=== PATIENT | male | born 1950 | race Caucasian/White ===

== ENCOUNTER 2024-03-08 02:02 | Emergency (ER) | payer MEDICARE, OTHER ==
[~2024-03-08] VITALS: Ht 182.9 cm; Wt 86.4 kg
[2024-03-08 02:10] VITALS: TEMP 97.6
[2024-03-08] MEDS: NS 1,000 ML IV ONE ×2 (02:25→04:17)
[2024-03-08 02:42] LABS: BASO % 0.3 % (0.0-1.0); EOS % 0.2 % (0.0-3.0); HEMATOCRIT 27.4 % (42.0-52.0); LYMPH # 0.8 10^3/uL (1.5-5.0); LYMPH % 9.2 % (24.0-44.0); MEAN CORPUSCULAR HEMOGLOBIN 30.9 pg (27.0-33.0); MEAN CORPUSCULAR HGB CONC 32.8 g/dl (32.0-36.5); MEAN CORPUSCULAR VOLUME 94.2 fl (80.0-96.0); MONO # 0.6 10^3/uL (0.0-0.8); MONO % 6.1 % (2.0-8.0); NEUTROPHILS # 7.5 10^3/uL (1.5-8.5); NEUTROPHILS % 83.4 % (36.0-66.0); PLATELET COUNT, AUTOMATED 178 10^3/uL (150-450); RED BLOOD COUNT 2.91 10^6/uL (4.30-6.10)
[2024-03-08 03:07] LABS: ETHYL ALCOHOL (ETHANOL) < 0.003 % (0.000-0.010)
[2024-03-08 03:09] LABS: BLOOD UREA NITROGEN 70 MG/DL (9-23); CARBON DIOXIDE LEVEL 25 MMOL/L (20-31); CHLORIDE LEVEL 105 MMOL/L (98-107); CK-MB VALUE MASS 2.9 NG/ML (<3.6); CPK CREATINE PHOSPHOKINASE 77 U/L (46-171); CREATININE FOR GFR 1.59 MG/DL (0.70-1.30); GLOMERULAR FILTRATION RATE 45.7 (>42); GLUCOSE, FASTING 251 MG/DL (74-106); MAGNESIUM LEVEL 1.7 MG/DL (1.8-2.4); MB/CK RELATIVE INDEX 3.76 (< OR =4); SODIUM LEVEL 139 MMOL/L (136-145)
[2024-03-08 03:11] LABS: THYROID STIMULATING HORMONE 1.789 uIU/ML (0.55-4.78)
[2024-03-08 03:12] LABS: FREE T4 1.11 NG/DL (0.89-1.76)
[2024-03-08] MEDS ORDERED: PIOG1TAB37 PO (03:29)
[2024-03-08] MEDS ORDERED: EZET10TA21 PO (03:29)
[2024-03-08] MEDS ORDERED: LAMO100T80 PO (03:29)
[2024-03-08] MEDS ORDERED: FENO200C24 PO (03:29)
[2024-03-08] MEDS ORDERED: ATIV2TAB PO (03:29)
[2024-03-08] MEDS ORDERED: LISI40TA4 PO (03:29)
[2024-03-08] MEDS ORDERED: TRAD5TAB PO (03:29)
[2024-03-08] MEDS ORDERED: NORV5TAB PO (03:29)
[2024-03-08] MEDS ORDERED: FARX1TAB3 PO (03:29)
[2024-03-08] MEDS ORDERED: METF-838 PO (03:29)
[2024-03-08] MEDS ORDERED: ATOR1TAB19 PO (03:29)
[2024-03-08] MEDS ORDERED: METO50TA7 PO (03:29)
[2024-03-08 03:37] LABS: LIPASE 50 U/L (12-53)
[2024-03-08 03:43] LABS: ALBUMIN 2.5 G/DL (3.2-5.2); ALKALINE PHOSPHATASE 51 U/L (46-116); ALT/SGPT 19 U/L (7.0-40); AST/SGOT 12 U/L (<34); BILIRUBIN,DIRECT 0.1 MG/DL (<0.4); BILIRUBIN,TOTAL 0.3 MG/DL (0.3-1.2); TOTAL PROTEIN 4.5 G/DL (5.7-8.2)
[2024-03-08] MEDS: MAG SULF 1GM/100ML (MAG RUN) 1 GM in IV 1 EA IV ONE (04:17)
[2024-03-08 05:46] VITALS: BP 115/62; O2SAT 94
== END 2024-03-08 06:25 | disposition home or self-care (01) ==
LOC: EDBD 02:02 → M ED 02:02
DX: E86.1 Hypovolemia (principal); E86.0 Dehydration; Z79.899 Other long term (current) drug therapy; Z79.84 Long term (current) use of oral hypoglycemic drugs
CPT/HCPCS: 70450; 71045; 72125; 80048; 80076; 82077; 82550; 82553; 83605; 83690; 83735; 84439; 84443; 84484; 85025; 93005; 93041; 94760; 96361; 96365; 99285; J3475

== ENCOUNTER 2024-09-05 06:58 | Inpatient (IN) | payer MEDICARE, OTHER ==
[~2024-09-05] VITALS: Ht 177.8 cm; Wt 73.5 kg
[~2024-09-05 06:58] MED LIST: ATIV2TAB PO; ATOR1TAB19 PO; EZET10TA21 PO; FARX1TAB3 PO; FENO200C24 PO; LAMO100T80 PO; LISI40TA4 PO; METF-838 PO; METO50TA7 PO; NORV5TAB PO; PIOG1TAB37 PO; TRAD5TAB PO
[2024-09-05 09:30] LABS: BASO # 0.1 10^3/uL (0.0-0.2); BASO % 1.2 % (0.0-1.0); EOS % 0.6 % (0.0-3.0); HEMATOCRIT 32.3 % (42.0-52.0); HEMOGLOBIN 10.9 g/dl (13.5-17.5); LYMPH # 0.6 10^3/uL (1.5-5.0); LYMPH % 11.2 % (24.0-44.0); MEAN CORPUSCULAR HEMOGLOBIN 29.9 pg (27.0-33.0); MEAN CORPUSCULAR HGB CONC 33.7 g/dl (32.0-36.5); MEAN CORPUSCULAR VOLUME 88.5 fl (80.0-96.0); MONO # 0.7 10^3/uL (0.0-0.8); MONO % 13.3 % (2.0-8.0); NEUTROPHILS # 3.6 10^3/uL (1.5-8.5); NEUTROPHILS % 73.3 % (36.0-66.0); PLATELET COUNT, AUTOMATED 263 10^3/uL (150-450); RED BLOOD COUNT 3.65 10^6/uL (4.30-6.10); WHITE BLOOD COUNT 4.9 10^3/uL (4.0-10.0)
[2024-09-05] MEDS: NS 500 ML IV ONE (11:02)
[2024-09-05 11:26] LABS: CK-MB VALUE MASS < 1.0 NG/ML (<3.6)
[2024-09-05 11:57] LABS: ALBUMIN 1.8 G/DL (3.2-5.2); ALKALINE PHOSPHATASE 52 U/L (46-116); ALT/SGPT 19 U/L (7.0-40); AST/SGOT 25 U/L (<34); BILIRUBIN,DIRECT 0.1 MG/DL (<0.4); BILIRUBIN,TOTAL 0.3 MG/DL (0.3-1.2); BLOOD UREA NITROGEN 17 MG/DL (9-23); CALCIUM LEVEL 5.5 MG/DL (8.3-10.6); CARBON DIOXIDE LEVEL 14 MMOL/L (20-31); CHLORIDE LEVEL 124 MMOL/L (98-107); CPK CREATINE PHOSPHOKINASE 44 U/L (46-171); GLOMERULAR FILTRATION RATE > 60.0 (>42); GLUCOSE, FASTING 121 MG/DL (74-106); MB/CK RELATIVE INDEX 2.27 (< OR =4); SODIUM LEVEL 148 MMOL/L (136-145)
[2024-09-05 12:42] LABS: CK-MB VALUE MASS < 1.0 NG/ML (<3.6)
[2024-09-05 12:51] LABS: CPK CREATINE PHOSPHOKINASE 141 U/L (46-171)
[2024-09-05] MEDS ORDERED: NS 1,000 ML IV SCH (13:15)
[2024-09-05] MEDS ORDERED: LORA2TAB14 PO (13:36)
[2024-09-05] MEDS ORDERED: FURO20TA2 PO (13:36)
[2024-09-05] MEDS ORDERED: FARX1TAB5 PO (13:36)
[2024-09-05] MEDS ORDERED: CLOP75TA2 PO (13:36)
[2024-09-05] MEDS ORDERED: ONDA-284 PO (13:36)
[2024-09-05] MEDS ORDERED: RISP-106 PO (13:36)
[2024-09-05] MEDS ORDERED: PROC10TA5 PO (13:36)
[2024-09-05] MEDS ORDERED: HOME MED LIST COMPLETE! XX SCH (13:40)
[2024-09-05 13:50] LABS: VENOUS BASE EXCESS 0.3 (-2.0-2.0); VENOUS O2 SATURATION 84.4 % (60.0-80.0); VENOUS PARTIAL PRESSURE CO2 40.7 mmHg (38.0-50.0); VENOUS PARTIAL PRESSURE O2 52.5 mmHg (30.0-50.0); VENOUS PH 7.406 UNITS (7.330-7.430); VENOUS STANDARD HCO3 24.5 MMOL/L; VENOUS TOTAL CO2 26.2 MMOL/L (24.0-28.0)
[2024-09-05] MEDS: CALCIUM GLUCONATE 1,000 MG in D5W MINI-BAG PLUS 100 ML IV ONE (13:52)
[2024-09-05] MEDS ORDERED: DEXTROSE 50% 50ML SYRINGE IV PRN (14:20)
[2024-09-05] MEDS ORDERED: GLUCOSE 4 GM CHEW PO PRN (14:20)
[2024-09-05] MEDS ORDERED: ACETAMINOPHEN 325 MG TAB PO PRN (14:20)
[2024-09-05] MEDS ORDERED: GLUCAGON INJ 1MG VIAL SC PRN (14:20)
[2024-09-05] MEDS: POTASSIUM CHLORIDE 10MEQ SR TABLET PO ONE ×2 (14:59→18:13)
[2024-09-05] MEDS: LR 1,000 ML IV ONE (15:01)
[2024-09-05 15:37] LABS: MAGNESIUM LEVEL 1.1 MG/DL (1.8-2.4); PHOSPHORUS LEVEL 2.5 MG/DL (2.4-5.1)
[2024-09-05] MEDS ORDERED: ONDANSETRON 4MG ORAL DISINTEGRATING TAB PO PRN (16:10)
[2024-09-05] MEDS ORDERED: risperiDONE 2 MG TAB PO PRN (16:10)
[2024-09-05] MEDS ORDERED: PROCHLORPERAZINE 5MG TAB PO PRN (16:10)
[2024-09-05] MEDS ORDERED: SODIUM BICARBONATE 75 MEQ in NS 0.45% 1,000 ML IV SCH (17:00)
[2024-09-05] MEDS: INSULIN LISPRO (NovoLOG) PER UNIT SC SCH ×2 (17:30→20:22)
[2024-09-05] MEDS: MAG SULF 1GM/100ML (MAG RUN) 1 GM in IV 1 EA IV SCH (18:13)
[2024-09-05 18:27] VITALS: BP 170/100; TEMP 99.5; O2SAT 94
[2024-09-05] MEDS: METOPROLOL TART 50 MG TAB PO SCH (18:33)
[2024-09-05] MEDS: amLODIPine 5 MG TAB PO SCH (18:33)
[2024-09-05] MEDS: lisinopriL 40MG TAB PO SCH (18:33)
[2024-09-05 18:54] LABS: THYROID STIMULATING HORMONE 0.014 uIU/ML (0.55-4.78)
[2024-09-05 19:38] VITALS: BP 160/96
[2024-09-05 20:00] VITALS: BP 160/88; TEMP 99.4; O2SAT 92
[2024-09-05] MEDS: LORazepam 2 MG TAB PO SCH (20:19)
[2024-09-05] MEDS: ENOXAPARIN 40MG/0.4ML SYRINGE (J1650 PER 10MG) SC SCH (20:22)
[2024-09-06] MEDS: SODIUM BICARBONATE 150 MEQ in D5W 1,000 ML IV SCH (00:09)
[2024-09-06 00:45] LABS: BLOOD UREA NITROGEN 15 MG/DL (9-23); CALCIUM LEVEL 10.3 MG/DL (8.3-10.6); CARBON DIOXIDE LEVEL 27 MMOL/L (20-31); CHLORIDE LEVEL 108 MMOL/L (98-107); CREATININE FOR GFR 0.81 MG/DL (0.70-1.30); GLOMERULAR FILTRATION RATE > 60.0 (>42); GLUCOSE, FASTING 153 MG/DL (74-106); MAGNESIUM LEVEL 2.5 MG/DL (1.8-2.4); POTASSIUM SERUM 4.2 MMOL/L (3.5-5.1); SODIUM LEVEL 140 MMOL/L (136-145)
[2024-09-06 04:00] VITALS: BP 152/99; TEMP 98.2; O2SAT 92
[2024-09-06 05:29] LABS: BASO # 0.1 10^3/uL (0.0-0.2); BASO % 1.2 % (0.0-1.0); EOS % 0.8 % (0.0-3.0); HEMATOCRIT 34.5 % (42.0-52.0); HEMOGLOBIN 11.6 g/dl (13.5-17.5); LYMPH # 0.5 10^3/uL (1.5-5.0); LYMPH % 10.7 % (24.0-44.0); MEAN CORPUSCULAR HEMOGLOBIN 29.6 pg (27.0-33.0); MEAN CORPUSCULAR HGB CONC 33.6 g/dl (32.0-36.5); MONO # 0.8 10^3/uL (0.0-0.8); MONO % 16.2 % (2.0-8.0); NEUTROPHILS # 3.5 10^3/uL (1.5-8.5); NEUTROPHILS % 70.9 % (36.0-66.0); PLATELET COUNT, AUTOMATED 282 10^3/uL (150-450); RED BLOOD COUNT 3.92 10^6/uL (4.30-6.10)
[2024-09-06 05:53] LABS: BLOOD UREA NITROGEN 14 MG/DL (9-23); CALCIUM LEVEL 10.2 MG/DL (8.3-10.6); CARBON DIOXIDE LEVEL 28 MMOL/L (20-31); CHLORIDE LEVEL 106 MMOL/L (98-107); GLOMERULAR FILTRATION RATE > 60.0 (>42); GLUCOSE, FASTING 167 MG/DL (74-106); POTASSIUM SERUM 3.7 MMOL/L (3.5-5.1); SODIUM LEVEL 140 MMOL/L (136-145)
[2024-09-06 07:04] LABS: THYROXINE (T4) 25.4 UG/DL (4.5-10.9)
[2024-09-06 07:05] LABS: T UPTAKE 63.4 % (22.5-37.0); THYROID PEROXIDASE ANTIBODY < 28.0 U/ML (<60.0); THYROID STIMULATING HORMONE 0.009 uIU/ML (0.55-4.78)
[2024-09-06 08:24] LABS: MAGNESIUM LEVEL 2.3 MG/DL (1.8-2.4)
[2024-09-06 09:23] VITALS: BP 150/95
[2024-09-06] MEDS: EZETIMIBE 10MG TABLET (ZETIA) PO SCH (09:26)
[2024-09-06] MEDS: ATORVASTATIN 10 MG TAB PO SCH (09:26)
[2024-09-06] MEDS: lamoTRIgine 100MG TAB PO SCH (09:26)
[2024-09-06] MEDS: CLOPIDOGREL 75 MG TAB PO SCH (09:27)
[2024-09-06 12:00] VITALS: BP 138/89; TEMP 98.1; O2SAT 95
[2024-09-06 16:00] VITALS: BP_SYST 122; BP_SYST 129; BP_DIAS 79; BP_DIAS 81
[2024-09-06 20:55] VITALS: BP 119/79; TEMP 98.6; O2SAT 94
[2024-09-07 03:32] VITALS: TEMP 99; O2SAT 92
[2024-09-07 04:00] VITALS: BP 150/85
[2024-09-07 06:23] LABS: BASO # 0.1 10^3/uL (0.0-0.2); EOS # 0.1 10^3/uL (0.0-0.5); EOS % 1.4 % (0.0-3.0); HEMATOCRIT 34.4 % (42.0-52.0); HEMOGLOBIN 11.6 g/dl (13.5-17.5); LYMPH # 0.6 10^3/uL (1.5-5.0); LYMPH % 12.7 % (24.0-44.0); MEAN CORPUSCULAR HEMOGLOBIN 28.9 pg (27.0-33.0); MEAN CORPUSCULAR HGB CONC 33.7 g/dl (32.0-36.5); MEAN CORPUSCULAR VOLUME 85.8 fl (80.0-96.0); MONO # 0.7 10^3/uL (0.0-0.8); MONO % 14.1 % (2.0-8.0); NEUTROPHILS # 3.5 10^3/uL (1.5-8.5); NEUTROPHILS % 70.4 % (36.0-66.0); PLATELET COUNT, AUTOMATED 293 10^3/uL (150-450); RED BLOOD COUNT 4.01 10^6/uL (4.30-6.10); WHITE BLOOD COUNT 4.9 10^3/uL (4.0-10.0)
[2024-09-07 07:09] LABS: BLOOD UREA NITROGEN 17 MG/DL (9-23); CALCIUM LEVEL 10.2 MG/DL (8.3-10.6); CARBON DIOXIDE LEVEL 28 MMOL/L (20-31); CHLORIDE LEVEL 105 MMOL/L (98-107); CREATININE FOR GFR 1.04 MG/DL (0.70-1.30); GLOMERULAR FILTRATION RATE > 60.0 (>42); GLUCOSE, FASTING 99 MG/DL (74-106); POTASSIUM SERUM 3.6 MMOL/L (3.5-5.1); SODIUM LEVEL 139 MMOL/L (136-145)
[2024-09-07 09:18] VITALS: BP 119/80
[2024-09-07] MEDS ORDERED: METH10TA PO ×2 (10:25→20:13)
[2024-09-07] MEDS ORDERED: DRON2.5C11 PO ×2 (10:25→20:13)
[2024-09-07] MEDS ORDERED: ALCOPAD25 TOP (10:32)
[2024-09-07] MEDS ORDERED: GLUC1TES2 XX (10:32)
[2024-09-07] MEDS ORDERED: LANC30MI XX (10:32)
[2024-09-07] MEDS ORDERED: SELF1KIT MC (10:32)
[2024-09-07] MEDS ORDERED: BLOOKIT21 XX (10:32)
[2024-09-07 12:00] VITALS: BP 120/73; TEMP 99; O2SAT 93
[2024-09-08 07:23] LABS: THYROGLOBULIN QUANTITATIVE 251.5 ng/mL (2.8-40.9)
== END 2024-09-07 13:05 | disposition home health service (06) | DRG 92 ==
LOC: EDBD 06:58 → M ED 06:58 → M ED INP 15:39 → M MSPAV 17:48
PROVIDERS: ADMIT Student in an Organized Health Care Education/Training Program; ATTEND General Practice
DX: R29.6 Repeated falls (principal); C34.90 Malignant neoplasm of unspecified part of unspecified bronchus or lung; C78.7 Secondary malignant neoplasm of liver and intrahepatic bile duct; E87.20 Acidosis, unspecified; E46 Unspecified protein-calorie malnutrition; R62.7 Adult failure to thrive; I10 Essential (primary) hypertension; E11.9 Type 2 diabetes mellitus without complications; E78.5 Hyperlipidemia, unspecified; F31.9 Bipolar disorder, unspecified; F41.9 Anxiety disorder, unspecified; E87.6 Hypokalemia; E83.51 Hypocalcemia; E83.42 Hypomagnesemia; Z11.52 Encounter for screening for COVID-19; W19.XXXA Unspecified fall, initial encounter; E86.0 Dehydration; Z79.84 Long term (current) use of oral hypoglycemic drugs; Z79.899 Other long term (current) drug therapy; Z87.891 Personal history of nicotine dependence; E05.90 Thyrotoxicosis, unspecified without thyrotoxic crisis or storm; I95.1 Orthostatic hypotension; E88.09 Other disorders of plasma-protein metabolism, not elsewhere classified

== ENCOUNTER 2024-09-07 15:49 | Inpatient (IN) | payer MEDICARE, OTHER ==
[~2024-09-07] VITALS: Ht 177.8 cm; Wt 77.8 kg
[~2024-09-07 15:49] MED LIST changes: +ALCOPAD25 TOP; +BLOOKIT21 XX; +CLOP75TA2 PO; +DRON2.5C11 PO; +FARX1TAB5 PO; +FURO20TA2 PO; +GLUC1TES2 XX; +LANC30MI XX; +LORA2TAB14 PO; +METH10TA PO; +ONDA-284 PO; +PROC10TA5 PO; +RISP-106 PO; +SELF1KIT MC
[2024-09-07 18:12] LABS: BASO # 0.1 10^3/uL (0.0-0.2); BASO % 0.8 % (0.0-1.0); EOS % 0.5 % (0.0-3.0); HEMATOCRIT 35.3 % (42.0-52.0); LYMPH # 0.6 10^3/uL (1.5-5.0); LYMPH % 10.5 % (24.0-44.0); MEAN CORPUSCULAR HEMOGLOBIN 29.6 pg (27.0-33.0); MEAN CORPUSCULAR VOLUME 87.2 fl (80.0-96.0); MONO # 0.7 10^3/uL (0.0-0.8); MONO % 10.9 % (2.0-8.0); NEUTROPHILS # 4.6 10^3/uL (1.5-8.5); PLATELET COUNT, AUTOMATED 308 10^3/uL (150-450); RED BLOOD COUNT 4.05 10^6/uL (4.30-6.10)
[2024-09-07 18:36] LABS: BLOOD UREA NITROGEN 20 MG/DL (9-23); CALCIUM LEVEL 11.1 MG/DL (8.3-10.6); CARBON DIOXIDE LEVEL 28 MMOL/L (20-31); CHLORIDE LEVEL 104 MMOL/L (98-107); CREATININE FOR GFR 1.11 MG/DL (0.70-1.30); GLOMERULAR FILTRATION RATE > 60.0 (>42); GLUCOSE, FASTING 122 MG/DL (74-106); MAGNESIUM LEVEL 1.7 MG/DL (1.8-2.4); POTASSIUM SERUM 3.5 MMOL/L (3.5-5.1); SODIUM LEVEL 137 MMOL/L (136-145)
[2024-09-07 18:40] LABS: THYROID STIMULATING HORMONE 0.013 uIU/ML (0.55-4.78)
[2024-09-07 18:41] LABS: FREE T4 6.91 NG/DL (0.89-1.76)
[2024-09-07] MEDS ORDERED: MAALOX 30 ML SUSP *UDC PO PRN (19:55)
[2024-09-07] MEDS ORDERED: MOM 30ML SUSPENSION UDC PO PRN (19:55)
[2024-09-07] MEDS ORDERED: METH10TA PO (20:13)
[2024-09-07] MEDS ORDERED: DRON2.5C11 PO (20:13)
[2024-09-07] MEDS ORDERED: HOME MED LIST COMPLETE! XX SCH (20:15)
[2024-09-07] MEDS: MAGNESIUM OXIDE 400MG TAB (MAG-OX) PO ONE (20:38)
[2024-09-07] MEDS: METOPROLOL TART 50 MG TAB PO ONE (20:38)
[2024-09-07] MEDS: INSULIN LISPRO (NovoLOG) PER UNIT SC SCH (21:00)
[2024-09-07 21:25] LABS: IONIZED CALCIUM 5.3 MG/DL (4.5-5.3)
[2024-09-07] MEDS ORDERED: GLUCOSE 4 GM CHEW PO PRN (21:40)
[2024-09-07] MEDS ORDERED: GLUCAGON INJ 1MG VIAL SC PRN (21:40)
[2024-09-07] MEDS ORDERED: risperiDONE 2 MG TAB PO PRN (21:40)
[2024-09-07] MEDS ORDERED: LORazepam 2 MG TAB PO PRN (21:40)
[2024-09-07 21:48] LABS: MAGNESIUM LEVEL 1.5 MG/DL (1.8-2.4)
[2024-09-07] MEDS: METOPROLOL TART 50 MG TAB PO SCH (21:58)
[2024-09-07] MEDS: LORazepam 2 MG TAB PO SCH (21:58)
[2024-09-07] MEDS: lamoTRIgine 100MG TAB PO SCH (21:58)
[2024-09-07 23:00] VITALS: BP 158/86; TEMP 97.7; O2SAT 94
[2024-09-07 23:10] VITALS: BP 134/87
[2024-09-07 23:15] VITALS: BP 135/84
[2024-09-07] MEDS: MAG SULF 1GM/100ML (MAG RUN) 1 GM in IV 1 EA IV SCH (23:31)
[2024-09-08 04:00] VITALS: BP 150/85; TEMP 97.5; O2SAT 96
[2024-09-08 06:00] VITALS: BP_SYST 139; BP_SYST 147; BP_SYST 150; BP_DIAS 85; BP_DIAS 88
[2024-09-08 06:12] LABS: ALBUMIN 2.7 G/DL (3.2-5.2); ALKALINE PHOSPHATASE 222 U/L (46-116); ALT/SGPT 45 U/L (7.0-40); AST/SGOT 78 U/L (<34); BILIRUBIN,TOTAL 0.8 MG/DL (0.3-1.2); BLOOD UREA NITROGEN 17 MG/DL (9-23); CALCIUM LEVEL 10.9 MG/DL (8.3-10.6); CARBON DIOXIDE LEVEL 28 MMOL/L (20-31); CHLORIDE LEVEL 106 MMOL/L (98-107); CREATININE FOR GFR 0.94 MG/DL (0.70-1.30); GLOMERULAR FILTRATION RATE > 60.0 (>42); GLUCOSE, FASTING 115 MG/DL (74-106); POTASSIUM SERUM 3.3 MMOL/L (3.5-5.1); SODIUM LEVEL 141 MMOL/L (136-145); TOTAL PROTEIN 6.2 G/DL (5.7-8.2)
[2024-09-08] MEDS: INSULIN LISPRO (NovoLOG) PER UNIT SC SCH (08:01)
[2024-09-08] MEDS: KCL 10MEQ/100ML SWI (KRUN) 10 MEQ in IV 1 EA IV SCH (08:01)
[2024-09-08] MEDS: ATORVASTATIN 10 MG TAB PO SCH (08:03)
[2024-09-08] MEDS: CLOPIDOGREL 75 MG TAB PO SCH (08:03)
[2024-09-08] MEDS: ENOXAPARIN 40MG/0.4ML SYRINGE (J1650 PER 10MG) SC SCH (08:03)
[2024-09-08] MEDS: FUROSEMIDE 20 MG TAB PO SCH (08:03)
[2024-09-08] MEDS: EZETIMIBE 10MG TABLET (ZETIA) PO SCH (08:04)
[2024-09-08] MEDS: amLODIPine 5 MG TAB PO SCH (08:27)
[2024-09-08] MEDS: lisinopriL 40MG TAB PO SCH (08:28)
[2024-09-08] MEDS ORDERED: HEPARIN SOD (PORCINE) 5000UNITS/ML 1ML VIAL/SYRINGE SC SCH (09:00)
[2024-09-08 10:59] VITALS: BP 143/79
[2024-09-08 12:00] VITALS: BP 159/88; TEMP 97.7; O2SAT 95
[2024-09-08 12:57] LABS: BLOOD UREA NITROGEN 16 MG/DL (9-23); CALCIUM LEVEL 10.9 MG/DL (8.3-10.6); CARBON DIOXIDE LEVEL 26 MMOL/L (20-31); CHLORIDE LEVEL 106 MMOL/L (98-107); CREATININE FOR GFR 0.91 MG/DL (0.70-1.30); GLOMERULAR FILTRATION RATE > 60.0 (>42); GLUCOSE, FASTING 99 MG/DL (74-106); MAGNESIUM LEVEL 1.7 MG/DL (1.8-2.4); POTASSIUM SERUM 3.6 MMOL/L (3.5-5.1); SODIUM LEVEL 141 MMOL/L (136-145)
[2024-09-08] MEDS: MAGNESIUM OXIDE 400MG TAB (MAG-OX) PO SCH (13:42)
[2024-09-08] MEDS: PROPRANOLOL 20 MG TAB PO SCH (16:02)
[2024-09-08 20:15] VITALS: BP 165/95; TEMP 97.3; O2SAT 95
[2024-09-08] MEDS: MEGESTROL 40MG TAB PO SCH (20:29)
[2024-09-08] MEDS: MIRTAZAPINE 7.5MG PER 1/2 TABLET PO SCH (20:29)
[2024-09-08] MEDS: LORazepam 1 MG TAB PO SCH (20:29)
[2024-09-09 03:32] VITALS: BP 138/64; TEMP 97.5; O2SAT 94
[2024-09-09 05:59] LABS: BASO # 0.1 10^3/uL (0.0-0.2); BASO % 1.1 % (0.0-1.0); EOS # 0.1 10^3/uL (0.0-0.5); EOS % 1.3 % (0.0-3.0); HEMATOCRIT 35.1 % (42.0-52.0); HEMOGLOBIN 11.6 g/dl (13.5-17.5); LYMPH # 0.7 10^3/uL (1.5-5.0); LYMPH % 12.8 % (24.0-44.0); MEAN CORPUSCULAR HEMOGLOBIN 29.3 pg (27.0-33.0); MEAN CORPUSCULAR VOLUME 88.6 fl (80.0-96.0); MONO # 0.8 10^3/uL (0.0-0.8); MONO % 14.9 % (2.0-8.0); NEUTROPHILS # 3.7 10^3/uL (1.5-8.5); NEUTROPHILS % 69.7 % (36.0-66.0); PLATELET COUNT, AUTOMATED 291 10^3/uL (150-450); RED BLOOD COUNT 3.96 10^6/uL (4.30-6.10); WHITE BLOOD COUNT 5.2 10^3/uL (4.0-10.0)
[2024-09-09 06:22] LABS: BLOOD UREA NITROGEN 19 MG/DL (9-23); CALCIUM LEVEL 10.7 MG/DL (8.3-10.6); CARBON DIOXIDE LEVEL 26 MMOL/L (20-31); CHLORIDE LEVEL 107 MMOL/L (98-107); CREATININE FOR GFR 0.81 MG/DL (0.70-1.30); GLOMERULAR FILTRATION RATE > 60.0 (>42); GLUCOSE, FASTING 97 MG/DL (74-106); POTASSIUM SERUM 3.2 MMOL/L (3.5-5.1); SODIUM LEVEL 143 MMOL/L (136-145)
[2024-09-09 08:01] LABS: MAGNESIUM LEVEL 1.6 MG/DL (1.8-2.4)
[2024-09-09] MEDS: POTASSIUM CHLORIDE 10MEQ SR TABLET PO ONE (10:05)
[2024-09-09] MEDS: ONDANSETRON 4MG ORAL DISINTEGRATING TAB SL PRN (10:07)
[2024-09-09 12:00] VITALS: BP 130/77; TEMP 97.5; O2SAT 95
[2024-09-09] MEDS: predniSONE 20 MG TAB PO SCH (14:09)
[2024-09-09] MEDS: MAG SULF 1GM/100ML (MAG RUN) 1 GM in IV 1 EA IV SCH (14:09)
[2024-09-09] MEDS: methylPREDNISolone 40MG 1ML VIAL IV SCH (20:07)
[2024-09-09 20:10] VITALS: BP 132/78; TEMP 97.7; O2SAT 94
[2024-09-10 03:20] VITALS: BP 133/76; TEMP 97.5; O2SAT 94
[2024-09-10 07:20] LABS: BLOOD UREA NITROGEN 31 MG/DL (9-23); CALCIUM LEVEL 11.4 MG/DL (8.3-10.6); CARBON DIOXIDE LEVEL 25 MMOL/L (20-31); CHLORIDE LEVEL 107 MMOL/L (98-107); CREATININE FOR GFR 0.79 MG/DL (0.70-1.30); GLOMERULAR FILTRATION RATE > 60.0 (>42); GLUCOSE, FASTING 220 MG/DL (74-106); POTASSIUM SERUM 4.1 MMOL/L (3.5-5.1); SODIUM LEVEL 144 MMOL/L (136-145)
[2024-09-10 07:31] LABS: BASO % 0.4 % (0.0-1.0); HEMOGLOBIN 12.4 g/dl (13.5-17.5); LYMPH # 0.3 10^3/uL (1.5-5.0); LYMPH % 7.3 % (24.0-44.0); MEAN CORPUSCULAR HEMOGLOBIN 29.4 pg (27.0-33.0); MEAN CORPUSCULAR HGB CONC 33.5 g/dl (32.0-36.5); MEAN CORPUSCULAR VOLUME 87.7 fl (80.0-96.0); MONO # 0.1 10^3/uL (0.0-0.8); MONO % 1.8 % (2.0-8.0); NEUTROPHILS # 4.1 10^3/uL (1.5-8.5); NEUTROPHILS % 90.1 % (36.0-66.0); PLATELET COUNT, AUTOMATED 337 10^3/uL (150-450); RED BLOOD COUNT 4.22 10^6/uL (4.30-6.10); WHITE BLOOD COUNT 4.5 10^3/uL (4.0-10.0)
[2024-09-10] MEDS: OLANZapine INTRAMUSCULAR 10MG VIAL IM ONE (10:55)
[2024-09-10 12:00] VITALS: BP 137/78; TEMP 97.5; O2SAT 95
[2024-09-10] MEDS: predniSONE 20 MG TAB PO SCH (12:29)
[2024-09-10 20:00] VITALS: TEMP 97.9; O2SAT 93
[2024-09-11 04:02] VITALS: BP 170/88; TEMP 97.5; O2SAT 96
[2024-09-11 05:58] LABS: BASO # 0.1 10^3/uL (0.0-0.2); BASO % 0.5 % (0.0-1.0); HEMATOCRIT 35.5 % (42.0-52.0); HEMOGLOBIN 12.3 g/dl (13.5-17.5); LYMPH # 0.6 10^3/uL (1.5-5.0); LYMPH % 6.3 % (24.0-44.0); MEAN CORPUSCULAR HEMOGLOBIN 30.1 pg (27.0-33.0); MEAN CORPUSCULAR HGB CONC 34.6 g/dl (32.0-36.5); MONO # 0.9 10^3/uL (0.0-0.8); MONO % 9.7 % (2.0-8.0); NEUTROPHILS % 83.1 % (36.0-66.0); PLATELET COUNT, AUTOMATED 347 10^3/uL (150-450); RED BLOOD COUNT 4.08 10^6/uL (4.30-6.10); WHITE BLOOD COUNT 9.6 10^3/uL (4.0-10.0)
[2024-09-11 06:35] LABS: BLOOD UREA NITROGEN 35 MG/DL (9-23); CALCIUM LEVEL 11.2 MG/DL (8.3-10.6); CARBON DIOXIDE LEVEL 28 MMOL/L (20-31); CHLORIDE LEVEL 111 MMOL/L (98-107); CREATININE FOR GFR 0.81 MG/DL (0.70-1.30); GLOMERULAR FILTRATION RATE > 60.0 (>42); GLUCOSE, FASTING 192 MG/DL (74-106); POTASSIUM SERUM 3.8 MMOL/L (3.5-5.1); SODIUM LEVEL 145 MMOL/L (136-145)
[2024-09-11] MEDS ORDERED: ISOVUE-370 76% 100ML VIAL As Ordered ONE (11:08)
[2024-09-11] MEDS: LORazepam 2 MG/ML 1ML VIAL IV STA (11:52)
[2024-09-11] MEDS: OLANZapine INTRAMUSCULAR 10MG VIAL IM ONE (12:34)
[2024-09-11 13:44] VITALS: BP 153/96; TEMP 97.3
[2024-09-11] MEDS: MEGESTROL 40MG TAB PO SCH (13:49)
[2024-09-11 20:00] VITALS: BP 142/91; TEMP 97.7; O2SAT 97
[2024-09-12 04:00] VITALS: BP 166/92; TEMP 97.7; O2SAT 96
[2024-09-12] MEDS ORDERED: OLANZapine INTRAMUSCULAR 10MG VIAL IM PRN (04:00)
[2024-09-12 05:51] LABS: BASO # 0.1 10^3/uL (0.0-0.2); BASO % 0.9 % (0.0-1.0); HEMATOCRIT 39.1 % (42.0-52.0); HEMOGLOBIN 13.2 g/dl (13.5-17.5); LYMPH # 0.7 10^3/uL (1.5-5.0); MEAN CORPUSCULAR HEMOGLOBIN 29.9 pg (27.0-33.0); MEAN CORPUSCULAR HGB CONC 33.8 g/dl (32.0-36.5); MEAN CORPUSCULAR VOLUME 88.5 fl (80.0-96.0); MONO # 0.9 10^3/uL (0.0-0.8); MONO % 12.6 % (2.0-8.0); NEUTROPHILS # 5.6 10^3/uL (1.5-8.5); PLATELET COUNT, AUTOMATED 351 10^3/uL (150-450); RED BLOOD COUNT 4.42 10^6/uL (4.30-6.10); WHITE BLOOD COUNT 7.4 10^3/uL (4.0-10.0)
[2024-09-12 06:18] LABS: BLOOD UREA NITROGEN 39 MG/DL (9-23); CALCIUM LEVEL 11.4 MG/DL (8.3-10.6); CARBON DIOXIDE LEVEL 30 MMOL/L (20-31); CHLORIDE LEVEL 112 MMOL/L (98-107); CHOLESTEROL LEVEL 77 MG/DL (<200); CREATININE FOR GFR 0.95 MG/DL (0.70-1.30); GLOMERULAR FILTRATION RATE > 60.0 (>42); GLUCOSE, FASTING 194 MG/DL (74-106); HDL CHOLESTEROL 18.3 MG/DL (>40); LDL CHOLESTEROL 30.1 MG/DL (<100); NON-HDL-C 58.7 MG/DL; POTASSIUM SERUM 3.7 MMOL/L (3.5-5.1); SODIUM LEVEL 148 MMOL/L (136-145); TRIGLYCERIDES LEVEL 143 MG/DL (<150)
[2024-09-12 07:05] LABS: HEMOGLOBIN A1c 5.8 % (4.0-6.0)
[2024-09-12] MEDS: LR 1,000 ML IV SCH (08:19)
[2024-09-12] MEDS: OLANZapine INTRAMUSCULAR 10MG VIAL IM PRN (09:49)
[2024-09-12 12:00] VITALS: BP 132/78; TEMP 97.3; O2SAT 98
[2024-09-12 19:53] LABS: FREE T3 6.3 PG/ML (2.3-4.2); THYROID STIMULATING HORMONE 0.008 uIU/ML (0.55-4.78)
[2024-09-12 19:54] LABS: FREE T4 5.94 NG/DL (0.89-1.76)
[2024-09-12 20:00] VITALS: BP 159/96; TEMP 97.3; O2SAT 97
[2024-09-12] MEDS: D5W/0.45% SODIUM CHLORIDE 1,000 ML IV SCH (20:19)
[2024-09-12] MEDS: risperiDONE 2 MG TAB PO SCH (21:00)
[2024-09-13] VITALS (7 sets, daily range): BP systolic 164–197; BP diastolic 80–122; TEMP 97.4–97.7; O2SAT 96–97
[2024-09-13] MEDS: LORazepam 2 MG/ML 1ML VIAL IV ONE (01:11)
[2024-09-13 06:23] LABS: BASO # 0.1 10^3/uL (0.0-0.2); BASO % 0.7 % (0.0-1.0); HEMATOCRIT 41.1 % (42.0-52.0); HEMOGLOBIN 13.8 g/dl (13.5-17.5); LYMPH # 0.6 10^3/uL (1.5-5.0); LYMPH % 7.5 % (24.0-44.0); MEAN CORPUSCULAR HEMOGLOBIN 29.5 pg (27.0-33.0); MEAN CORPUSCULAR HGB CONC 33.6 g/dl (32.0-36.5); MEAN CORPUSCULAR VOLUME 87.8 fl (80.0-96.0); MONO # 0.9 10^3/uL (0.0-0.8); MONO % 11.3 % (2.0-8.0); NEUTROPHILS # 6.6 10^3/uL (1.5-8.5); NEUTROPHILS % 80.1 % (36.0-66.0); PLATELET COUNT, AUTOMATED 380 10^3/uL (150-450); RED BLOOD COUNT 4.68 10^6/uL (4.30-6.10); WHITE BLOOD COUNT 8.3 10^3/uL (4.0-10.0)
[2024-09-13 06:48] LABS: BLOOD UREA NITROGEN 39 MG/DL (9-23); CALCIUM LEVEL 11.4 MG/DL (8.3-10.6); CARBON DIOXIDE LEVEL 27 MMOL/L (20-31); CHLORIDE LEVEL 115 MMOL/L (98-107); CREATININE FOR GFR 1.02 MG/DL (0.70-1.30); GLOMERULAR FILTRATION RATE > 60.0 (>42); GLUCOSE, FASTING 235 MG/DL (74-106); POTASSIUM SERUM 3.5 MMOL/L (3.5-5.1); SODIUM LEVEL 150 MMOL/L (136-145)
[2024-09-13 09:38] LABS: ALBUMIN 2.9 G/DL (3.2-5.2); ALKALINE PHOSPHATASE 251 U/L (40-129); ALT/SGPT 77 U/L (7.0-40); AST/SGOT 73 U/L (<34); BILIRUBIN,TOTAL 0.6 MG/DL (0.3-1.2); BLOOD UREA NITROGEN 38 MG/DL (9-23); CALCIUM LEVEL 10.9 MG/DL (8.3-10.6); CARBON DIOXIDE LEVEL 27 MMOL/L (20-31); CHLORIDE LEVEL 114 MMOL/L (98-107); CREATININE FOR GFR 0.94 MG/DL (0.70-1.30); GLOMERULAR FILTRATION RATE > 60.0 (>42); GLUCOSE, FASTING 245 MG/DL (74-106); POTASSIUM SERUM 3.6 MMOL/L (3.5-5.1); SODIUM LEVEL 148 MMOL/L (136-145); TOTAL PROTEIN 6.3 G/DL (5.7-8.2)
[2024-09-13 09:40] LABS: PTH INTACT 36.5 PG/ML (18.5-88.0)
[2024-09-13 09:41] LABS: TOTAL 25(OH) VITAMIN D 105.9 NG/ML (20.0-100.0)
[2024-09-13] MEDS: D5W 1,000 ML IV SCH (12:39)
[2024-09-13] MEDS: LEVEMIR (INSULIN DETEMIR) 1 UNITS/0.01ML SC ONE (13:24)
[2024-09-13] MEDS: PAMIDRONATE DISODIUM FOR INJ 60 MG in D5W 1,000 ML IV ONE (13:38)
[2024-09-13 14:42] LABS: ALBUMIN 2.8 G/DL (3.2-5.2); ALKALINE PHOSPHATASE 222 U/L (40-129); ALT/SGPT 76 U/L (7.0-40); AST/SGOT 76 U/L (<34); BILIRUBIN,TOTAL 0.8 MG/DL (0.3-1.2); BLOOD UREA NITROGEN 37 MG/DL (9-23); CALCIUM LEVEL 11.1 MG/DL (8.3-10.6); CARBON DIOXIDE LEVEL 27 MMOL/L (20-31); CHLORIDE LEVEL 113 MMOL/L (98-107); CREATININE FOR GFR 0.92 MG/DL (0.70-1.30); GLOMERULAR FILTRATION RATE > 60.0 (>42); GLUCOSE, FASTING 280 MG/DL (74-106); POTASSIUM SERUM 3.5 MMOL/L (3.5-5.1); SODIUM LEVEL 147 MMOL/L (136-145); TOTAL PROTEIN 6.2 G/DL (5.7-8.2)
[2024-09-13] MEDS ORDERED: hydrALAZINE 20MG/ML 1ML VIAL IV PRN (20:15)
[2024-09-13 20:40] LABS: ALBUMIN 2.7 G/DL (3.2-5.2); ALKALINE PHOSPHATASE 221 U/L (40-129); ALT/SGPT 81 U/L (7.0-40); AST/SGOT 89 U/L (<34); BILIRUBIN,TOTAL 0.6 MG/DL (0.3-1.2); BLOOD UREA NITROGEN 32 MG/DL (9-23); CALCIUM LEVEL 10.8 MG/DL (8.3-10.6); CARBON DIOXIDE LEVEL 23 MMOL/L (20-31); CHLORIDE LEVEL 112 MMOL/L (98-107); CREATININE FOR GFR 0.85 MG/DL (0.70-1.30); GLOMERULAR FILTRATION RATE > 60.0 (>42); GLUCOSE, FASTING 149 MG/DL (74-106); POTASSIUM SERUM 3.7 MMOL/L (3.5-5.1); SODIUM LEVEL 143 MMOL/L (136-145); TOTAL PROTEIN 6.2 G/DL (5.7-8.2)
[2024-09-13] MEDS: LEVEMIR (INSULIN DETEMIR) 1 UNITS/0.01ML SC SCH (23:57)
[2024-09-14 01:10] VITALS: BP 126/80; O2SAT 96
[2024-09-14 02:56] LABS: ALBUMIN 2.6 G/DL (3.2-5.2); ALKALINE PHOSPHATASE 219 U/L (40-129); ALT/SGPT 79 U/L (7.0-40); AST/SGOT 100 U/L (<34); BILIRUBIN,TOTAL 0.8 MG/DL (0.3-1.2); BLOOD UREA NITROGEN 27 MG/DL (9-23); CALCIUM LEVEL 10.3 MG/DL (8.3-10.6); CARBON DIOXIDE LEVEL 26 MMOL/L (20-31); CHLORIDE LEVEL 109 MMOL/L (98-107); GLOMERULAR FILTRATION RATE > 60.0 (>42); GLUCOSE, FASTING 206 MG/DL (74-106); POTASSIUM SERUM 3.1 MMOL/L (3.5-5.1); SODIUM LEVEL 140 MMOL/L (136-145); TOTAL PROTEIN 6.2 G/DL (5.7-8.2)
[2024-09-14 04:44] VITALS: BP 149/88; O2SAT 96
[2024-09-14 06:54] LABS: HEMATOCRIT 37.4 % (42.0-52.0); HEMOGLOBIN 12.6 g/dl (13.5-17.5); MEAN CORPUSCULAR HEMOGLOBIN 29.4 pg (27.0-33.0); MEAN CORPUSCULAR HGB CONC 33.7 g/dl (32.0-36.5); MEAN CORPUSCULAR VOLUME 87.4 fl (80.0-96.0); PLATELET COUNT, AUTOMATED 282 10^3/uL (150-450); RED BLOOD COUNT 4.28 10^6/uL (4.30-6.10); WHITE BLOOD COUNT 7.2 10^3/uL (4.0-10.0)
[2024-09-14 07:20] LABS: ALBUMIN 2.5 G/DL (3.2-5.2); ALKALINE PHOSPHATASE 226 U/L (40-129); ALT/SGPT 91 U/L (7.0-40); AST/SGOT 138 U/L (<34); BILIRUBIN,TOTAL 0.9 MG/DL (0.3-1.2); BLOOD UREA NITROGEN 29 MG/DL (9-23); CALCIUM LEVEL 10.4 MG/DL (8.3-10.6); CARBON DIOXIDE LEVEL 26 MMOL/L (20-31); CHLORIDE LEVEL 107 MMOL/L (98-107); CREATININE FOR GFR 0.77 MG/DL (0.70-1.30); GLOMERULAR FILTRATION RATE > 60.0 (>42); GLUCOSE, FASTING 170 MG/DL (74-106); POTASSIUM SERUM 3.3 MMOL/L (3.5-5.1); SODIUM LEVEL 138 MMOL/L (136-145); TOTAL PROTEIN 5.8 G/DL (5.7-8.2)
[2024-09-14 08:17] VITALS: BP 150/99; TEMP 98; O2SAT 98
[2024-09-14] MEDS: POTASSIUM CHLORIDE 10% LIQ 20MEQ/15ML UDC PO ONE ×2 (09:00→09:11)
[2024-09-14] MEDS ORDERED: PILL CUTTER 1 EACH XX ONE (09:06)
[2024-09-14] MEDS: D5W/0.45% SODIUM CHLORIDE 1,000 ML IV SCH (09:15)
[2024-09-14] MEDS ORDERED: BARIUM SULFATE 700 MG TABLET (E-Z-DISK) As Ordered ONE (10:04)
[2024-09-14] MEDS ORDERED: VARIBAR NECTAR 40% w/v 240ML SUSP BTL As Ordered ONE (10:04)
[2024-09-14] MEDS ORDERED: VARIBAR PUDDING 40% w/v 230ML TUBE As Ordered ONE (10:04)
[2024-09-14] MEDS ORDERED: E-Z-PAQUE 96% w/w SUSP 176GM BTL As Ordered ONE (10:04)
[2024-09-14 10:06] LABS: ALBUMIN 2.5 G/DL (3.2-5.2); ALKALINE PHOSPHATASE 233 U/L (40-129); ALT/SGPT 103 U/L (7.0-40); AST/SGOT 178 U/L (<34); BILIRUBIN,TOTAL 0.9 MG/DL (0.3-1.2); BLOOD UREA NITROGEN 28 MG/DL (9-23); CALCIUM LEVEL 10.5 MG/DL (8.3-10.6); CARBON DIOXIDE LEVEL 26 MMOL/L (20-31); CHLORIDE LEVEL 107 MMOL/L (98-107); CREATININE FOR GFR 0.74 MG/DL (0.70-1.30); GLOMERULAR FILTRATION RATE > 60.0 (>42); GLUCOSE, FASTING 143 MG/DL (74-106); POTASSIUM SERUM 3.2 MMOL/L (3.5-5.1); SODIUM LEVEL 139 MMOL/L (136-145); TOTAL PROTEIN 5.9 G/DL (5.7-8.2)
[2024-09-14] MEDS: KCL 10MEQ/100ML SWI (KRUN) 10 MEQ in IV 1 EA IV SCH (12:21)
[2024-09-14 13:27] VITALS: BP 129/79; TEMP 97.4; O2SAT 96
[2024-09-14 14:59] LABS: ALBUMIN 2.7 G/DL (3.2-5.2); ALKALINE PHOSPHATASE 242 U/L (40-129); ALT/SGPT 153 U/L (7.0-40); AST/SGOT 348 U/L (<34); BILIRUBIN,TOTAL 1.2 MG/DL (0.3-1.2); BLOOD UREA NITROGEN 30 MG/DL (9-23); CALCIUM LEVEL 10.5 MG/DL (8.3-10.6); CARBON DIOXIDE LEVEL 26 MMOL/L (20-31); CHLORIDE LEVEL 108 MMOL/L (98-107); CREATININE FOR GFR 0.82 MG/DL (0.70-1.30); GLOMERULAR FILTRATION RATE > 60.0 (>42); GLUCOSE, FASTING 125 MG/DL (74-106); POTASSIUM SERUM 3.8 MMOL/L (3.5-5.1); SODIUM LEVEL 140 MMOL/L (136-145); TOTAL PROTEIN 5.9 G/DL (5.7-8.2)
[2024-09-14 15:10] VITALS: BP 144/80; TEMP 97.8; O2SAT 97
[2024-09-14] MEDS: PANTOPRAZOLE 40MG VIAL IV SCH (18:42)
[2024-09-14 20:00] VITALS: BP 170/86; TEMP 98.1; O2SAT 97
[2024-09-14] MEDS ORDERED: LORazepam 2 MG/ML 1ML VIAL IV SCH (21:00)
[2024-09-14] MEDS ORDERED: traZODone 50 MG TAB PO SCH (21:00)
[2024-09-14] MEDS: D5W/0.2% SODIUM CHLORIDE 1,000 ML IV SCH (23:28)
[2024-09-15] VITALS: BP 162/83; TEMP 97.9; O2SAT 98
[2024-09-15] MEDS: INSULIN LISPRO (NovoLOG) PER UNIT SC SCH
[2024-09-15 04:00] VITALS: BP 181/92; TEMP 98.5; O2SAT 96
[2024-09-15] MEDS ORDERED: hydrALAZINE 20MG/ML 1ML VIAL IV PRN (06:40)
[2024-09-15 07:37] LABS: HEMATOCRIT 38.4 % (42.0-52.0); HEMOGLOBIN 13.2 g/dl (13.5-17.5); MEAN CORPUSCULAR HEMOGLOBIN 29.8 pg (27.0-33.0); MEAN CORPUSCULAR HGB CONC 34.4 g/dl (32.0-36.5); MEAN CORPUSCULAR VOLUME 86.7 fl (80.0-96.0); PLATELET COUNT, AUTOMATED 222 10^3/uL (150-450); RED BLOOD COUNT 4.43 10^6/uL (4.30-6.10); WHITE BLOOD COUNT 8.7 10^3/uL (4.0-10.0)
[2024-09-15 08:06] LABS: ALBUMIN 2.4 G/DL (3.2-5.2); ALKALINE PHOSPHATASE 289 U/L (40-129); ALT/SGPT 249 U/L (7.0-40); AST/SGOT 769 U/L (<34); BILIRUBIN,TOTAL 1.2 MG/DL (0.3-1.2); BLOOD UREA NITROGEN 28 MG/DL (9-23); CALCIUM LEVEL 9.3 MG/DL (8.3-10.6); CARBON DIOXIDE LEVEL 23 MMOL/L (20-31); CHLORIDE LEVEL 106 MMOL/L (98-107); CREATININE FOR GFR 0.77 MG/DL (0.70-1.30); GLOMERULAR FILTRATION RATE > 60.0 (>42); GLUCOSE, FASTING 177 MG/DL (74-106); POTASSIUM SERUM 3.6 MMOL/L (3.5-5.1); SODIUM LEVEL 136 MMOL/L (136-145); TOTAL PROTEIN 5.6 G/DL (5.7-8.2)
[2024-09-15] MEDS: BREXPIPRAZOLE 0.5MG TABLET (REXULTI) PO SCH (08:08)
[2024-09-15 08:22] VITALS: BP 161/96; TEMP 97.5; O2SAT 96
[2024-09-15] MEDS ORDERED: methylPREDNISolone 40MG 1ML VIAL IV SCH (09:00)
[2024-09-15] MEDS ORDERED: predniSONE 20 MG TAB PO SCH (09:00)
[2024-09-15] MEDS: methylPREDNISolone 40MG 1ML VIAL IV SCH (09:37)
[2024-09-15] MEDS: LORazepam 2 MG/ML 1ML VIAL IV PRN (12:56)
[2024-09-15] MEDS: D5W/0.2% SODIUM CHLORIDE 1,000 ML IV SCH (14:17)
[2024-09-15 16:38] VITALS: BP 161/99; TEMP 97.6; O2SAT 97
[2024-09-15] MEDS: LORazepam 2 MG/ML 1ML VIAL IV STA (17:12)
[2024-09-15] MEDS ORDERED: DEXTROSE IV SCH (18:00)
[2024-09-15] MEDS ORDERED: POTASSIUM PHOSPHATE IV SCH (18:00)
[2024-09-15] MEDS ORDERED: AMINO ACID IV SCH (18:00)
[2024-09-15] MEDS ORDERED: FAT EMULSION IV 125 ML IV ONE (18:00)
[2024-09-15 19:00] LABS: HEPATITIS B SURFACE ANTIGEN NEGATIVE (NEGATIVE)
[2024-09-15 19:22] LABS: HEPATITIS C VIRUS ABY INDEX < 0.02 INDEX (<0.8)
[2024-09-15 19:24] LABS: HEPATITIS B CORE ANTIBODY IGM NEGATIVE (NEGATIVE)
[2024-09-15] MEDS: lamoTRIgine 25MG TAB PO SCH (19:46)
[2024-09-15] MEDS: diphenhydrAMINE 50MG/ML VIAL IV PRN (22:49)
[2024-09-16 03:20] VITALS: BP 163/93; TEMP 97.7; O2SAT 96
[2024-09-16 08:28] VITALS: BP 156/93; TEMP 97.4; O2SAT 97
[2024-09-16 08:51] LABS: HEMATOCRIT 36.4 % (42.0-52.0); HEMOGLOBIN 12.4 g/dl (13.5-17.5); MEAN CORPUSCULAR HEMOGLOBIN 29.3 pg (27.0-33.0); MEAN CORPUSCULAR HGB CONC 34.1 g/dl (32.0-36.5); MEAN CORPUSCULAR VOLUME 86.1 fl (80.0-96.0); PLATELET COUNT, AUTOMATED 190 10^3/uL (150-450); RED BLOOD COUNT 4.23 10^6/uL (4.30-6.10); WHITE BLOOD COUNT 8.6 10^3/uL (4.0-10.0)
[2024-09-16 09:23] LABS: FREE T4 3.34 NG/DL (0.89-1.76); THYROID STIMULATING HORMONE 0.009 uIU/ML (0.55-4.78)
[2024-09-16 09:33] LABS: ALBUMIN 2.2 G/DL (3.2-5.2); ALKALINE PHOSPHATASE 243 U/L (40-129); ALT/SGPT 187 U/L (7.0-40); AST/SGOT 320 U/L (<34); BILIRUBIN,TOTAL 1.1 MG/DL (0.3-1.2); BLOOD UREA NITROGEN 19 MG/DL (9-23); CARBON DIOXIDE LEVEL 25 MMOL/L (20-31); CHLORIDE LEVEL 108 MMOL/L (98-107); CREATININE FOR GFR 0.62 MG/DL (0.70-1.30); FREE T3 3.2 PG/ML (2.3-4.2); GLOMERULAR FILTRATION RATE > 60.0 (>42); GLUCOSE, FASTING 151 MG/DL (74-106); POTASSIUM SERUM 3.7 MMOL/L (3.5-5.1); SODIUM LEVEL 138 MMOL/L (136-145); TOTAL PROTEIN 5.3 G/DL (5.7-8.2)
[2024-09-16] MEDS: ceFAZolin SOD 2 GM in IV 1 EA IV ONE (10:37)
[2024-09-16] MEDS ORDERED: propofoL 200 MG/20 ML VIAL As Ordered ONE (13:53)
[2024-09-16] MEDS ORDERED: LIDOCAINE 2% 100MG/5ML SDV (FOR ANES.) As Ordered ONE (13:53)
[2024-09-16 20:53] VITALS: BP 131/92; TEMP 97.3; O2SAT 96
[2024-09-16] MEDS: MAGNESIUM OXIDE 400MG TAB (MAG-OX) GT SCH (21:24)
[2024-09-16] MEDS: lamoTRIgine 25MG TAB GT SCH (21:24)
[2024-09-16] MEDS: PROPRANOLOL 20 MG TAB GT SCH (21:39)
[2024-09-17 00:12] VITALS: BP 164/90; TEMP 97.7; O2SAT 96
[2024-09-17 03:35] VITALS: BP 124/75; TEMP 97.3; O2SAT 95
[2024-09-17 06:16] LABS: HEMATOCRIT 37.1 % (42.0-52.0); HEMOGLOBIN 12.7 g/dl (13.5-17.5); MEAN CORPUSCULAR HEMOGLOBIN 29.1 pg (27.0-33.0); MEAN CORPUSCULAR HGB CONC 34.2 g/dl (32.0-36.5); MEAN CORPUSCULAR VOLUME 84.9 fl (80.0-96.0); PLATELET COUNT, AUTOMATED 216 10^3/uL (150-450); RED BLOOD COUNT 4.37 10^6/uL (4.30-6.10); WHITE BLOOD COUNT 9.9 10^3/uL (4.0-10.0)
[2024-09-17 06:43] LABS: ALBUMIN 2.2 G/DL (3.2-5.2); ALKALINE PHOSPHATASE 297 U/L (40-129); ALT/SGPT 138 U/L (7.0-40); AST/SGOT 183 U/L (<34); BILIRUBIN,TOTAL 1.3 MG/DL (0.3-1.2); BLOOD UREA NITROGEN 18 MG/DL (9-23); CARBON DIOXIDE LEVEL 26 MMOL/L (20-31); CHLORIDE LEVEL 106 MMOL/L (98-107); CREATININE FOR GFR 0.58 MG/DL (0.70-1.30); GLOMERULAR FILTRATION RATE > 60.0 (>42); GLUCOSE, FASTING 95 MG/DL (74-106); POTASSIUM SERUM 3.7 MMOL/L (3.5-5.1); SODIUM LEVEL 139 MMOL/L (136-145); TOTAL PROTEIN 5.3 G/DL (5.7-8.2)
[2024-09-17 07:32] VITALS: BP 168/88; TEMP 97.8; O2SAT 97
[2024-09-17] MEDS ORDERED: lamoTRIgine 25MG TAB GT SCH (09:00)
[2024-09-17] MEDS: CLOPIDOGREL 75 MG TAB GT SCH (10:35)
[2024-09-17] MEDS: BREXPIPRAZOLE 0.5MG TABLET (REXULTI) GT SCH (10:35)
[2024-09-17] MEDS: ACETAMINOPHEN 325 MG TAB PO PRN (10:35)
[2024-09-17 10:36] VITALS: BP 162/102
[2024-09-17] MEDS: amLODIPine 5 MG TAB GT SCH (10:36)
[2024-09-17] MEDS: lamoTRIgine 100MG TAB GT SCH (10:36)
[2024-09-17 16:23] VITALS: BP 120/84; TEMP 97.4; O2SAT 95
[2024-09-17] MEDS: MOM 30ML SUSPENSION UDC GT PRN (19:00)
[2024-09-17 20:00] VITALS: BP 137/86; TEMP 97.8; O2SAT 96
[2024-09-18 04:19] VITALS: BP 141/88; TEMP 97.4; O2SAT 94
[2024-09-18 08:13] VITALS: BP 123/91; TEMP 98.2; O2SAT 96
[2024-09-18] MEDS: LEVEMIR (INSULIN DETEMIR) 1 UNITS/0.01ML SC SCH (09:13)
[2024-09-18 10:13] LABS: HEMATOCRIT 43.2 % (42.0-52.0); MEAN CORPUSCULAR HEMOGLOBIN 29.4 pg (27.0-33.0); MEAN CORPUSCULAR VOLUME 86.4 fl (80.0-96.0); PLATELET COUNT, AUTOMATED 334 10^3/uL (150-450); WHITE BLOOD COUNT 13.6 10^3/uL (4.0-10.0)
[2024-09-18 10:19] LABS: HEMOGLOBIN 14.7 g/dl (13.5-17.5)
[2024-09-18 10:40] LABS: ALBUMIN 2.3 G/DL (3.2-5.2); ALKALINE PHOSPHATASE 518 U/L (40-129); ALT/SGPT 200 U/L (7.0-40); AST/SGOT 228 U/L (<34); BILIRUBIN,TOTAL 1.3 MG/DL (0.3-1.2); BLOOD UREA NITROGEN 42 MG/DL (9-23); CALCIUM LEVEL 9.1 MG/DL (8.3-10.6); CARBON DIOXIDE LEVEL 24 MMOL/L (20-31); CHLORIDE LEVEL 103 MMOL/L (98-107); CREATININE FOR GFR 0.85 MG/DL (0.70-1.30); GLOMERULAR FILTRATION RATE > 60.0 (>42); GLUCOSE, FASTING 161 MG/DL (74-106); POTASSIUM SERUM 4.5 MMOL/L (3.5-5.1); SODIUM LEVEL 136 MMOL/L (136-145); TOTAL PROTEIN 5.8 G/DL (5.7-8.2)
[2024-09-18 15:19] VITALS: BP 128/80; TEMP 97.8; O2SAT 96
[2024-09-18] MEDS: LACTULOSE 20GM/30ML SYRUP UDC PEG ONE (18:38)
[2024-09-18 19:35] VITALS: BP 146/92; TEMP 97.9; O2SAT 94
[2024-09-18] MEDS ORDERED: lamoTRIgine 100MG TAB GT SCH (21:00)
[2024-09-18 23:28] VITALS: BP 143/76; TEMP 98.4; O2SAT 95
[2024-09-19 03:36] VITALS: BP 129/81; TEMP 98.3; O2SAT 96
[2024-09-19 05:51] LABS: HEMATOCRIT 41.9 % (42.0-52.0); HEMOGLOBIN 14.3 g/dl (13.5-17.5); MEAN CORPUSCULAR HEMOGLOBIN 29.9 pg (27.0-33.0); MEAN CORPUSCULAR HGB CONC 34.1 g/dl (32.0-36.5); MEAN CORPUSCULAR VOLUME 87.7 fl (80.0-96.0); PLATELET COUNT, AUTOMATED 337 10^3/uL (150-450); RED BLOOD COUNT 4.78 10^6/uL (4.30-6.10); WHITE BLOOD COUNT 15.2 10^3/uL (4.0-10.0)
[2024-09-19 06:26] LABS: ALBUMIN 2.2 G/DL (3.2-5.2); ALKALINE PHOSPHATASE 495 U/L (40-129); ALT/SGPT 205 U/L (7.0-40); AST/SGOT 176 U/L (<34); BLOOD UREA NITROGEN 62 MG/DL (9-23); CALCIUM LEVEL 9.6 MG/DL (8.3-10.6); CARBON DIOXIDE LEVEL 26 MMOL/L (20-31); CHLORIDE LEVEL 104 MMOL/L (98-107); CREATININE FOR GFR 1.15 MG/DL (0.70-1.30); GLOMERULAR FILTRATION RATE > 60.0 (>42); GLUCOSE, FASTING 241 MG/DL (74-106); POTASSIUM SERUM 5.5 MMOL/L (3.5-5.1); SODIUM LEVEL 139 MMOL/L (136-145); TOTAL PROTEIN 5.4 G/DL (5.7-8.2)
[2024-09-19] MEDS: DEXTROSE 50% 50ML SYRINGE IV STA (07:40)
[2024-09-19] MEDS: HumuLIN R (REGULAR) INSULIN (NovoLIN R) **100U/ML** PER UNIT IV STA (07:43)
[2024-09-19 09:22] VITALS: BP 124/81; TEMP 98.5; O2SAT 95
[2024-09-19 10:19] LABS: PROCALCITONIN 1.33 ng/ml
[2024-09-19 11:04] LABS: LIPASE 113 U/L (12-53)
[2024-09-19 11:06] LABS: AMYLASE 153 U/L (30-118)
[2024-09-19 15:46] VITALS: BP 142/88; TEMP 97.6; O2SAT 93
[2024-09-19 20:00] VITALS: BP 141/79; TEMP 97.2; O2SAT 69
[2024-09-19] MEDS: PIPERACILLIN/TAZOBACTAM SOD 3.375 GM in DEXTROSE 5% (D5W) ADV/MINI-BAG 50 ML IV SCH (20:45)
[2024-09-19] MEDS: diphenhydrAMINE 12.5MG/5ML ELIXIR UDC GT PRN (22:17)
[2024-09-20] VITALS (9 sets, daily range): BP systolic 117–151; BP diastolic 56–92; TEMP 96.8–98.2; O2SAT 92–96
[2024-09-20 06:23] LABS: HEMATOCRIT 43.2 % (42.0-52.0); HEMOGLOBIN 14.7 g/dl (13.5-17.5); MEAN CORPUSCULAR HEMOGLOBIN 29.3 pg (27.0-33.0); MEAN CORPUSCULAR VOLUME 86.1 fl (80.0-96.0); PLATELET COUNT, AUTOMATED 333 10^3/uL (150-450); RED BLOOD COUNT 5.02 10^6/uL (4.30-6.10); WHITE BLOOD COUNT 19.7 10^3/uL (4.0-10.0)
[2024-09-20 06:56] LABS: ALBUMIN 2.1 G/DL (3.2-5.2); ALKALINE PHOSPHATASE 486 U/L (40-129); ALT/SGPT 220 U/L (7.0-40); AST/SGOT 173 U/L (<34); BILIRUBIN,TOTAL 1.7 MG/DL (0.3-1.2); BLOOD UREA NITROGEN 56 MG/DL (9-23); CALCIUM LEVEL 9.4 MG/DL (8.3-10.6); CARBON DIOXIDE LEVEL 26 MMOL/L (20-31); CHLORIDE LEVEL 106 MMOL/L (98-107); CREATININE FOR GFR 0.88 MG/DL (0.70-1.30); GLOMERULAR FILTRATION RATE > 60.0 (>42); GLUCOSE, FASTING 139 MG/DL (74-106); POTASSIUM SERUM 4.6 MMOL/L (3.5-5.1); SODIUM LEVEL 140 MMOL/L (136-145); TOTAL PROTEIN 5.4 G/DL (5.7-8.2)
[2024-09-20] MEDS ORDERED: BREXPIPRAZOLE 0.5MG TABLET (REXULTI) PO SCH (09:00)
[2024-09-20] MEDS ORDERED: ISOVUE-300 61% 100ML VIAL As Ordered ONE (09:42)
[2024-09-20] MEDS: ISOVUE-300 61% 100ML VIAL XX ONE (10:17)
[2024-09-20] MEDS ORDERED: lamoTRIgine 100MG TAB PO SCH ×2 (12:15→21:00)
[2024-09-20] MEDS ORDERED: ACETAMINOPHEN 1000MG/100ML IV BAG As Ordered ONE (17:40)
[2024-09-20] MEDS ORDERED: fentaNYL 100 MCG/2 ML INJECTION As Ordered ONE (17:40)
[2024-09-20] MEDS ORDERED: ONDANSETRON 4MG 2ML VIAL As Ordered ONE (17:40)
[2024-09-20] MEDS ORDERED: ROCURONIUM BROMIDE 50MG/5ML VIAL As Ordered ONE (17:41)
[2024-09-20] MEDS ORDERED: SUGAMMADEX SODIUM 500 MG/5 ML VIAL (BRIDION) As Ordered ONE (17:41)
[2024-09-20] MEDS: LIDOCAINE 1% SDV 30ML VIAL As Ordered ONE (17:56)
[2024-09-20] MEDS ORDERED: KETOROLAC 60MG 2ML VIAL As Ordered ONE (18:03)
[2024-09-20] MEDS ORDERED: LACRILUBE (AKWA TEARS) OPHTH OINT 3.5GM As Ordered ONE (18:09)
[2024-09-20] MEDS ORDERED: VANCOMYCIN HCL 500 MG in DEXTROSE 5% (D5W) MINI-BAG PLU 100 ML IV SCH (18:50)
[2024-09-20] MEDS: lamoTRIgine 100MG TAB PEG SCH (20:11)
[2024-09-20] MEDS: VANCOMYCIN 1,250 MG/250 ML IV BAG *LOAD IV ONE (21:33)
[2024-09-20] MEDS: DEXTROSE 50% 50ML SYRINGE IV PRN (23:59)
[2024-09-21 03:45] VITALS: BP 135/85; TEMP 96.8; O2SAT 92
[2024-09-21 04:57] LABS: BASO % 0.2 % (0.0-1.0); EOS % 0.1 % (0.0-3.0); HEMATOCRIT 39.7 % (42.0-52.0); HEMOGLOBIN 13.4 g/dl (13.5-17.5); LYMPH # 0.5 10^3/uL (1.5-5.0); LYMPH % 2.7 % (24.0-44.0); MEAN CORPUSCULAR HEMOGLOBIN 29.3 pg (27.0-33.0); MEAN CORPUSCULAR HGB CONC 33.8 g/dl (32.0-36.5); MEAN CORPUSCULAR VOLUME 86.9 fl (80.0-96.0); MONO # 0.3 10^3/uL (0.0-0.8); MONO % 1.9 % (2.0-8.0); NEUTROPHILS # 15.8 10^3/uL (1.5-8.5); NEUTROPHILS % 94.5 % (36.0-66.0); PLATELET COUNT, AUTOMATED 269 10^3/uL (150-450); RED BLOOD COUNT 4.57 10^6/uL (4.30-6.10); WHITE BLOOD COUNT 16.7 10^3/uL (4.0-10.0)
[2024-09-21 05:22] LABS: ALBUMIN 1.8 G/DL (3.2-5.2); BILIRUBIN,TOTAL 1.6 MG/DL (0.3-1.2); CALCIUM LEVEL 8.3 MG/DL (8.3-10.6); CREATININE FOR GFR 1.45 MG/DL (0.70-1.30); GLOMERULAR FILTRATION RATE 50.8 (>42); POTASSIUM SERUM 4.7 MMOL/L (3.5-5.1); TOTAL PROTEIN 4.9 G/DL (5.7-8.2)
[2024-09-21 07:48] VITALS: BP 145/92; TEMP 97; O2SAT 92
[2024-09-21] MEDS ORDERED: VANCOMYCIN 750MG/150 ML IV BAG IV SCH (09:00)
[2024-09-21 10:14] LABS: PROCALCITONIN 2.78 ng/ml
[2024-09-21] MEDS: VANCOMYCIN 1,000MG/200 ML IV BAG IV SCH (11:10)
[2024-09-21 12:00] VITALS: BP 137/85; TEMP 97.9; O2SAT 95
[2024-09-21] MEDS: PIPERACILLIN/TAZOBACTAM SOD 2.25 GM in DEXTROSE 5% (D5W) ADV/MINI-BAG 50 ML IV SCH (14:49)
[2024-09-21 16:00] VITALS: BP 150/88; TEMP 97.9; O2SAT 96
[2024-09-21 19:40] VITALS: BP 115/82; TEMP 97.3; O2SAT 95
[2024-09-22 03:20] VITALS: BP 118/82; TEMP 97; O2SAT 95
[2024-09-22 07:15] LABS: BASO % 0.1 % (0.0-1.0); HEMATOCRIT 42.5 % (42.0-52.0); HEMOGLOBIN 14.1 g/dl (13.5-17.5); LYMPH # 0.3 10^3/uL (1.5-5.0); MEAN CORPUSCULAR HGB CONC 33.2 g/dl (32.0-36.5); MEAN CORPUSCULAR VOLUME 87.3 fl (80.0-96.0); MONO # 0.2 10^3/uL (0.0-0.8); MONO % 1.3 % (2.0-8.0); NEUTROPHILS # 14.5 10^3/uL (1.5-8.5); NEUTROPHILS % 95.8 % (36.0-66.0); PLATELET COUNT, AUTOMATED 320 10^3/uL (150-450); RED BLOOD COUNT 4.87 10^6/uL (4.30-6.10); WHITE BLOOD COUNT 15.2 10^3/uL (4.0-10.0)
[2024-09-22 07:46] LABS: ALBUMIN 1.9 G/DL (3.2-5.2); ALKALINE PHOSPHATASE 370 U/L (40-129); ALT/SGPT 130 U/L (7.0-40); AST/SGOT 115 U/L (<34); BILIRUBIN,TOTAL 1.5 MG/DL (0.3-1.2); BLOOD UREA NITROGEN 74 MG/DL (9-23); CALCIUM LEVEL 8.5 MG/DL (8.3-10.6); CARBON DIOXIDE LEVEL 24 MMOL/L (20-31); CHLORIDE LEVEL 108 MMOL/L (98-107); CREATININE FOR GFR 1.18 MG/DL (0.70-1.30); GLOMERULAR FILTRATION RATE > 60.0 (>42); GLUCOSE, FASTING 296 MG/DL (74-106); SODIUM LEVEL 141 MMOL/L (136-145); TOTAL PROTEIN 5.1 G/DL (5.7-8.2)
[2024-09-22] MEDS: VANCOMYCIN 1,250 MG/250 ML IV BAG IV SCH (09:09)
[2024-09-22 11:38] VITALS: BP 129/78; TEMP 97.7; O2SAT 96
[2024-09-22 16:17] LABS: FREE T3 1.3 PG/ML (2.3-4.2); FREE T4 1.32 NG/DL (0.89-1.76)
[2024-09-22 16:18] LABS: THYROID STIMULATING HORMONE 0.012 uIU/ML (0.55-4.78)
[2024-09-22 20:00] VITALS: BP 139/88; TEMP 97.9; O2SAT 96
[2024-09-22] MEDS: LEVEMIR (INSULIN DETEMIR) 1 UNITS/0.01ML SC SCH (20:38)
[2024-09-23 03:00] VITALS: BP 144/89; TEMP 97; O2SAT 98
[2024-09-23 07:31] LABS: BASO % 0.2 % (0.0-1.0); HEMATOCRIT 41.3 % (42.0-52.0); HEMOGLOBIN 13.6 g/dl (13.5-17.5); LYMPH # 0.3 10^3/uL (1.5-5.0); MEAN CORPUSCULAR HEMOGLOBIN 29.1 pg (27.0-33.0); MEAN CORPUSCULAR HGB CONC 32.9 g/dl (32.0-36.5); MEAN CORPUSCULAR VOLUME 88.4 fl (80.0-96.0); MONO # 0.4 10^3/uL (0.0-0.8); MONO % 2.7 % (2.0-8.0); NEUTROPHILS # 13.7 10^3/uL (1.5-8.5); NEUTROPHILS % 94.3 % (36.0-66.0); PLATELET COUNT, AUTOMATED 337 10^3/uL (150-450); RED BLOOD COUNT 4.67 10^6/uL (4.30-6.10); WHITE BLOOD COUNT 14.6 10^3/uL (4.0-10.0)
[2024-09-23 08:03] LABS: ALBUMIN 1.9 G/DL (3.2-5.2); ALKALINE PHOSPHATASE 462 U/L (40-129); ALT/SGPT 150 U/L (7.0-40); AST/SGOT 154 U/L (<34); BILIRUBIN,TOTAL 1.1 MG/DL (0.3-1.2); BLOOD UREA NITROGEN 57 MG/DL (9-23); CARBON DIOXIDE LEVEL 26 MMOL/L (20-31); CHLORIDE LEVEL 110 MMOL/L (98-107); CREATININE FOR GFR 0.86 MG/DL (0.70-1.30); GLOMERULAR FILTRATION RATE > 60.0 (>42); GLUCOSE, FASTING 111 MG/DL (74-106); SODIUM LEVEL 142 MMOL/L (136-145); TOTAL PROTEIN 5.2 G/DL (5.7-8.2)
[2024-09-23] MEDS: VANCOMYCIN 750MG/150 ML IV BAG IV SCH (09:46)
[2024-09-23 10:16] VITALS: BP 144/91; TEMP 97.9; O2SAT 97
[2024-09-23 12:21] VITALS: BP 188/90; TEMP 97.9; O2SAT 98
[2024-09-23 12:30] VITALS: BP 140/88
[2024-09-23] MEDS: LevoFLOXacin 750 MG TABLET GT SCH (12:32)
[2024-09-23 20:00] VITALS: BP 126/82; TEMP 97.5; O2SAT 98
[2024-09-24 03:34] VITALS: BP 150/91; TEMP 97.3; O2SAT 97
[2024-09-24 05:47] LABS: BASO % 0.2 % (0.0-1.0); EOS % 0.1 % (0.0-3.0); HEMATOCRIT 40.5 % (42.0-52.0); HEMOGLOBIN 13.7 g/dl (13.5-17.5); LYMPH # 0.3 10^3/uL (1.5-5.0); LYMPH % 2.1 % (24.0-44.0); MEAN CORPUSCULAR HEMOGLOBIN 29.7 pg (27.0-33.0); MEAN CORPUSCULAR HGB CONC 33.8 g/dl (32.0-36.5); MEAN CORPUSCULAR VOLUME 87.9 fl (80.0-96.0); MONO # 0.4 10^3/uL (0.0-0.8); MONO % 2.9 % (2.0-8.0); NEUTROPHILS # 12.7 10^3/uL (1.5-8.5); NEUTROPHILS % 93.7 % (36.0-66.0); PLATELET COUNT, AUTOMATED 283 10^3/uL (150-450); RED BLOOD COUNT 4.61 10^6/uL (4.30-6.10); WHITE BLOOD COUNT 13.5 10^3/uL (4.0-10.0)
[2024-09-24 06:23] LABS: ALBUMIN 1.8 G/DL (3.2-5.2); ALKALINE PHOSPHATASE 496 U/L (40-129); ALT/SGPT 193 U/L (7.0-40); AST/SGOT 190 U/L (<34); BILIRUBIN,TOTAL 1.1 MG/DL (0.3-1.2); BLOOD UREA NITROGEN 46 MG/DL (9-23); CALCIUM LEVEL 9.3 MG/DL (8.3-10.6); CARBON DIOXIDE LEVEL 26 MMOL/L (20-31); CHLORIDE LEVEL 108 MMOL/L (98-107); CREATININE FOR GFR 0.73 MG/DL (0.70-1.30); GLOMERULAR FILTRATION RATE > 60.0 (>42); GLUCOSE, FASTING 101 MG/DL (74-106); POTASSIUM SERUM 5.2 MMOL/L (3.5-5.1); SODIUM LEVEL 139 MMOL/L (136-145); TOTAL PROTEIN 4.8 G/DL (5.7-8.2)
[2024-09-24 12:00] VITALS: BP 146/88; TEMP 97.9; O2SAT 97
[2024-09-24] MEDS: SALIVA SUBSTITUTE(MOUTHKOTE) BTL MT PRN (18:29)
[2024-09-24 20:46] VITALS: BP 145/87; TEMP 98.2; O2SAT 96
[2024-09-24] MEDS: LEVEMIR (INSULIN DETEMIR) 1 UNITS/0.01ML SC SCH (20:50)
[2024-09-25 03:52] VITALS: BP 142/86; TEMP 98.1; O2SAT 96
[2024-09-25 06:23] LABS: ALBUMIN 1.8 G/DL (3.2-5.2); ALKALINE PHOSPHATASE 522 U/L (40-129); ALT/SGPT 242 U/L (7.0-40); AST/SGOT 222 U/L (<34); BILIRUBIN,TOTAL 1.2 MG/DL (0.3-1.2); BLOOD UREA NITROGEN 38 MG/DL (9-23); CALCIUM LEVEL 9.3 MG/DL (8.3-10.6); CARBON DIOXIDE LEVEL 24 MMOL/L (20-31); CHLORIDE LEVEL 107 MMOL/L (98-107); CREATININE FOR GFR 0.64 MG/DL (0.70-1.30); GLOMERULAR FILTRATION RATE > 60.0 (>42); GLUCOSE, FASTING 105 MG/DL (74-106); POTASSIUM SERUM 5.3 MMOL/L (3.5-5.1); SODIUM LEVEL 136 MMOL/L (136-145); TOTAL PROTEIN 4.7 G/DL (5.7-8.2)
[2024-09-25 12:00] VITALS: BP 140/86; TEMP 98.1; O2SAT 98
[2024-09-25 12:14] LABS: MAGNESIUM LEVEL 1.8 MG/DL (1.8-2.4)
[2024-09-25 20:00] VITALS: BP 142/86; TEMP 98.1; O2SAT 94
[2024-09-25] MEDS: LORazepam 1 MG TAB PO PRN (21:42)
[2024-09-26 00:18] VITALS: BP 170/94; TEMP 98.2; O2SAT 97
[2024-09-26 00:41] LABS: VENOUS BASE EXCESS -0.3 (-2.0-2.0); VENOUS HCO3 23.4 MMOL/L (23.0-27.0); VENOUS O2 SATURATION 97.1 % (60.0-80.0); VENOUS PARTIAL PRESSURE CO2 35.7 mmHg (38.0-50.0); VENOUS PARTIAL PRESSURE O2 94.3 mmHg (30.0-50.0); VENOUS PH 7.434 UNITS (7.330-7.430); VENOUS STANDARD HCO3 24.2 MMOL/L; VENOUS TOTAL CO2 24.5 MMOL/L (24.0-28.0)
[2024-09-26 00:55] LABS: BASO % 0.2 % (0.0-1.0); EOS % 0.1 % (0.0-3.0); HEMATOCRIT 43.2 % (42.0-52.0); HEMOGLOBIN 14.7 g/dl (13.5-17.5); LYMPH # 0.4 10^3/uL (1.5-5.0); LYMPH % 2.2 % (24.0-44.0); MEAN CORPUSCULAR HEMOGLOBIN 29.7 pg (27.0-33.0); MEAN CORPUSCULAR VOLUME 87.3 fl (80.0-96.0); MONO # 0.4 10^3/uL (0.0-0.8); MONO % 2.4 % (2.0-8.0); NEUTROPHILS # 16.6 10^3/uL (1.5-8.5); NEUTROPHILS % 94.1 % (36.0-66.0); PLATELET COUNT, AUTOMATED 419 10^3/uL (150-450); RED BLOOD COUNT 4.95 10^6/uL (4.30-6.10); WHITE BLOOD COUNT 17.6 10^3/uL (4.0-10.0)
[2024-09-26] MEDS: amLODIPine 5 MG TAB GT ONE (00:55)
[2024-09-26 01:22] LABS: CK-MB VALUE MASS 1.8 NG/ML (<3.6)
[2024-09-26 01:24] LABS: ALBUMIN 1.9 G/DL (3.2-5.2); ALKALINE PHOSPHATASE 604 U/L (40-129); ALT/SGPT 310 U/L (7.0-40); AST/SGOT 305 U/L (<34); BILIRUBIN,DIRECT 1.2 MG/DL (<0.4); BILIRUBIN,TOTAL 1.6 MG/DL (0.3-1.2); BLOOD UREA NITROGEN 39 MG/DL (9-23); CALCIUM LEVEL 9.3 MG/DL (8.3-10.6); CARBON DIOXIDE LEVEL 23 MMOL/L (20-31); CHLORIDE LEVEL 105 MMOL/L (98-107); CPK CREATINE PHOSPHOKINASE 198 U/L (46-171); CREATININE FOR GFR 0.73 MG/DL (0.70-1.30); GLOMERULAR FILTRATION RATE > 60.0 (>42); GLUCOSE, FASTING 147 MG/DL (74-106); MAGNESIUM LEVEL 1.8 MG/DL (1.8-2.4); POTASSIUM SERUM 5.6 MMOL/L (3.5-5.1); SODIUM LEVEL 134 MMOL/L (136-145); TOTAL PROTEIN 4.9 G/DL (5.7-8.2)
[2024-09-26 01:25] LABS: INR 0.99; PARTIAL THROMBOPLASTIN TIME 25.7 SECONDS (24.8-34.2); PROTHROMBIN TIME 13.4 SECONDS (12.5-14.5)
[2024-09-26 01:31] LABS: PROCALCITONIN 1.15 ng/ml
[2024-09-26 01:32] LABS: THYROID STIMULATING HORMONE 0.266 uIU/ML (0.55-4.78); THYROXINE (T4) 3.4 UG/DL (4.5-10.9)
[2024-09-26 01:34] LABS: FREE THYROXINE INDEX 1.4 % (1.4-3.8); T UPTAKE 40.2 % (22.5-37.0)
[2024-09-26 04:00] VITALS: BP 144/76; TEMP 97.9; O2SAT 97
[2024-09-26] MEDS: ALBUTEROL SULFATE 2.5MG/0.5ML INH NEB SOLN NEB ONE (04:30)
[2024-09-26] MEDS: MORPHINE 2 MG/ML 1ML VIAL IV ONE (05:06)
[2024-09-26 08:07] LABS: BLOOD UREA NITROGEN 40 MG/DL (9-23); CALCIUM LEVEL 9.5 MG/DL (8.3-10.6); CARBON DIOXIDE LEVEL 27 MMOL/L (20-31); CHLORIDE LEVEL 102 MMOL/L (98-107); CREATININE FOR GFR 0.82 MG/DL (0.70-1.30); GLOMERULAR FILTRATION RATE > 60.0 (>42); GLUCOSE, FASTING 76 MG/DL (74-106); POTASSIUM SERUM 5.9 MMOL/L (3.5-5.1); SODIUM LEVEL 135 MMOL/L (136-145)
[2024-09-26 09:36] LABS: ALKALINE PHOSPHATASE 655 U/L (40-129); ALT/SGPT 353 U/L (7.0-40); AST/SGOT 347 U/L (<34); BILIRUBIN,DIRECT 1.4 MG/DL (<0.4); TOTAL PROTEIN 5.6 G/DL (5.7-8.2)
[2024-09-26] MEDS: PATIROMER SORBITEX CALCIUM 8.4 GM POWDER PACKET (VELTASSA) PO ONE (10:11)
[2024-09-26 10:27] LABS: BASO # 0.1 10^3/uL (0.0-0.2); BASO % 0.2 % (0.0-1.0); HEMATOCRIT 45.2 % (42.0-52.0); HEMOGLOBIN 15.3 g/dl (13.5-17.5); LYMPH # 0.4 10^3/uL (1.5-5.0); LYMPH % 1.9 % (24.0-44.0); MEAN CORPUSCULAR HEMOGLOBIN 29.8 pg (27.0-33.0); MEAN CORPUSCULAR HGB CONC 33.8 g/dl (32.0-36.5); MEAN CORPUSCULAR VOLUME 87.9 fl (80.0-96.0); MONO # 0.5 10^3/uL (0.0-0.8); MONO % 2.2 % (2.0-8.0); NEUTROPHILS # 20.4 10^3/uL (1.5-8.5); NEUTROPHILS % 94.9 % (36.0-66.0); PLATELET COUNT, AUTOMATED 387 10^3/uL (150-450); RED BLOOD COUNT 5.14 10^6/uL (4.30-6.10); WHITE BLOOD COUNT 21.6 10^3/uL (4.0-10.0)
[2024-09-26 11:57] LABS: BASO % 0.2 % (0.0-1.0); HEMATOCRIT 44.9 % (42.0-52.0); HEMOGLOBIN 15.2 g/dl (13.5-17.5); LYMPH # 0.3 10^3/uL (1.5-5.0); LYMPH % 1.3 % (24.0-44.0); MEAN CORPUSCULAR HEMOGLOBIN 29.7 pg (27.0-33.0); MEAN CORPUSCULAR HGB CONC 33.9 g/dl (32.0-36.5); MEAN CORPUSCULAR VOLUME 87.7 fl (80.0-96.0); MONO # 0.4 10^3/uL (0.0-0.8); MONO % 1.8 % (2.0-8.0); NEUTROPHILS # 22.8 10^3/uL (1.5-8.5); NEUTROPHILS % 95.9 % (36.0-66.0); PLATELET COUNT, AUTOMATED 373 10^3/uL (150-450); RED BLOOD COUNT 5.12 10^6/uL (4.30-6.10); WHITE BLOOD COUNT 23.8 10^3/uL (4.0-10.0)
[2024-09-26 12:25] LABS: ALBUMIN 1.7 G/DL (3.2-5.2); ALKALINE PHOSPHATASE 571 U/L (40-129); ALT/SGPT 308 U/L (7.0-40); AST/SGOT 297 U/L (<34); BLOOD UREA NITROGEN 40 MG/DL (9-23); CARBON DIOXIDE LEVEL 23 MMOL/L (20-31); CHLORIDE LEVEL 104 MMOL/L (98-107); CREATININE FOR GFR 0.64 MG/DL (0.70-1.30); GLOMERULAR FILTRATION RATE > 60.0 (>42); GLUCOSE, FASTING 94 MG/DL (74-106); POTASSIUM SERUM 5.6 MMOL/L (3.5-5.1); SODIUM LEVEL 133 MMOL/L (136-145)
[2024-09-26 12:27] LABS: PROCALCITONIN 1.21 ng/ml
[2024-09-26 12:30] VITALS: BP 128/72; TEMP 98.2; O2SAT 98
[2024-09-26] MEDS: MORPHINE 2 MG/ML 1ML VIAL IV PRN (13:36)
[2024-09-26 13:58] VITALS: BP 151/54; TEMP 99.7; O2SAT 91
[2024-09-26] MEDS: methylPREDNISolone 40MG 1ML VIAL IV SCH (14:27)
[2024-09-26] MEDS ORDERED: VANCOMYCIN/WATER FOR INJ 1,000 MG in IV 1 EA IV SCH (20:00)
[2024-09-26 21:00] VITALS: BP 143/88; TEMP 97.7; O2SAT 97
[2024-09-26] MEDS: VANCOMYCIN 1,250 MG/250 ML IV BAG *LOAD IV ONE (21:43)
[2024-09-26] MEDS: LEVEMIR (INSULIN DETEMIR) 1 UNITS/0.01ML SC SCH (21:46)
[2024-09-27] VITALS (9 sets, daily range): BP systolic 113–154; BP diastolic 73–107; TEMP 97.3–97.9; O2SAT 92–97
[2024-09-27] MEDS: PIPERACILLIN/TAZOBACTAM SOD 3.375 GM in DEXTROSE 5% (D5W) ADV/MINI-BAG 50 ML IV SCH (00:01)
[2024-09-27 08:41] LABS: VANCOMYCIN LEVEL TROUGH 12.7 UG/ML (10.0-20.0)
[2024-09-27 08:42] LABS: PHOSPHORUS LEVEL 4.8 MG/DL (2.4-5.1)
[2024-09-27 08:44] LABS: THYROID STIMULATING HORMONE 0.457 uIU/ML (0.55-4.78)
[2024-09-27 08:45] LABS: FREE T4 0.68 NG/DL (0.89-1.76)
[2024-09-27 09:06] LABS: BLOOD UREA NITROGEN 46 MG/DL (9-23); CALCIUM LEVEL 8.9 MG/DL (8.3-10.6); CARBON DIOXIDE LEVEL 21 MMOL/L (20-31); CHLORIDE LEVEL 102 MMOL/L (98-107); CREATININE FOR GFR 0.76 MG/DL (0.70-1.30); GLOMERULAR FILTRATION RATE > 60.0 (>42); GLUCOSE, FASTING 115 MG/DL (74-106); POTASSIUM SERUM 5.3 MMOL/L (3.5-5.1); SODIUM LEVEL 132 MMOL/L (136-145)
[2024-09-27] MEDS: VANCOMYCIN 750MG/150 ML IV BAG IV SCH (09:08)
[2024-09-27] MEDS ORDERED: LIDOCAINE 1% MDV 20ML VIAL As Ordered ONE (13:26)
[2024-09-27] MEDS ORDERED: DEXTROSE 50% 50ML SYRINGE As Ordered ONE (13:29)
[2024-09-27] MEDS ORDERED: MIDAZOLAM INJ 2MG/2ML VIAL As Ordered ONE (13:37)
[2024-09-27] MEDS ORDERED: LIDOCAINE 2% JELLY 6ML SYRINGE As Ordered ONE (13:41)
[2024-09-27 17:38] LABS: HEMATOCRIT 55.7 % (42.0-52.0); MEAN CORPUSCULAR HGB CONC 32.7 g/dl (32.0-36.5); MEAN CORPUSCULAR VOLUME 91.9 fl (80.0-96.0); PLATELET COUNT, AUTOMATED 431 10^3/uL (150-450); RED BLOOD COUNT 6.06 10^6/uL (4.30-6.10); WHITE BLOOD COUNT 27.8 10^3/uL (4.0-10.0)
[2024-09-27 17:40] LABS: HEMOGLOBIN 18.2 g/dl (13.5-17.5)
[2024-09-27] MEDS: D5W/0.9% SODIUM CHLORIDE 1,000 ML IV SCH (18:20)
[2024-09-28] VITALS (18 sets, daily range): BP systolic 114–158; BP diastolic 77–107; TEMP 95.2–100.1; O2SAT 86–99
[2024-09-28] MEDS ORDERED: diphenhydrAMINE 50MG/ML VIAL IM ONE
[2024-09-28] MEDS ORDERED: HALOPERIDOL LACTATE 5MG/ML VIAL IM ONE
[2024-09-28] MEDS: DEXTROSE 50% 50ML SYRINGE IV STA ×3 (01:08→20:44)
[2024-09-28] MEDS: ACETAMINOPHEN *IV* 1,000 MG in IV 1 EA IV ONE (01:49)
[2024-09-28 10:06] LABS: HEMATOCRIT 43.2 % (42.0-52.0); MEAN CORPUSCULAR HEMOGLOBIN 29.8 pg (27.0-33.0); MEAN CORPUSCULAR HGB CONC 34.3 g/dl (32.0-36.5); MEAN CORPUSCULAR VOLUME 86.9 fl (80.0-96.0); PLATELET COUNT, AUTOMATED 332 10^3/uL (150-450); RED BLOOD COUNT 4.97 10^6/uL (4.30-6.10); WHITE BLOOD COUNT 21.7 10^3/uL (4.0-10.0)
[2024-09-28 10:17] LABS: VANCOMYCIN LEVEL TROUGH 20.7 UG/ML (10.0-20.0)
[2024-09-28 10:20] LABS: ALBUMIN 1.5 G/DL (3.2-5.2); BILIRUBIN,DIRECT 2.5 MG/DL (<0.4); BILIRUBIN,TOTAL 3.1 MG/DL (0.3-1.2); TOTAL PROTEIN 4.3 G/DL (5.7-8.2)
[2024-09-28 10:26] LABS: ALBUMIN 1.5 G/DL (3.2-5.2); BILIRUBIN,DIRECT 2.5 MG/DL (<0.4); BILIRUBIN,TOTAL 3.1 MG/DL (0.3-1.2); CREATININE FOR GFR 1.44 MG/DL (0.70-1.30); GLOMERULAR FILTRATION RATE 51.2 (>42); POTASSIUM SERUM 5.5 MMOL/L (3.5-5.1); TOTAL PROTEIN 4.3 G/DL (5.7-8.2)
[2024-09-28 10:28] LABS: HEMOGLOBIN 14.8 g/dl (13.5-17.5)
[2024-09-28] MEDS ORDERED: VANCOMYCIN INTERMITTENT/PULSE DOSING BY CLINICAL PHARMACIST PER DOSING PROTOCOL XX SCH (11:15)
[2024-09-28] MEDS: LR 1,000 ML IV SCH (12:01)
[2024-09-28] MEDS: ACETYLCYSTEINE IV ONE ×3 (15:36→21:53)
[2024-09-28] MEDS: PIPERACILLIN/TAZOBACTAM SOD 3.375 GM in DEXTROSE 5% (D5W) ADV/MINI-BAG 50 ML IV SCH (15:36)
[2024-09-28] MEDS: D5W IV ONE ×3 (15:36→21:53)
[2024-09-28 18:01] LABS: CALCIUM LEVEL 7.6 MG/DL (8.3-10.6); CREATININE FOR GFR 1.54 MG/DL (0.70-1.30); GLOMERULAR FILTRATION RATE 47.4 (>42); POTASSIUM SERUM 6.1 MMOL/L (3.5-5.1)
[2024-09-28] MEDS: ONDANSETRON 4MG ORAL DISINTEGRATING TAB GT PRN (18:51)
[2024-09-28] MEDS: FUROSEMIDE 40MG/4ML VIAL IV ONE (18:51)
[2024-09-28] MEDS: HumuLIN R (REGULAR) INSULIN (NovoLIN R) **100U/ML** PER UNIT IV STA ×2 (18:51→20:44)
[2024-09-28] MEDS: CALCIUM GLUCONATE 1,000 MG in DEXTROSE 5% (D5W) MINI-BAG PLU 100 ML IV ONE ×3 (19:00→21:53)
[2024-09-28 19:50] LABS: CALCIUM LEVEL 8.3 MG/DL (8.3-10.6); CREATININE FOR GFR 1.75 MG/DL (0.70-1.30); GLOMERULAR FILTRATION RATE 40.9 (>42); POTASSIUM SERUM 6.8 MMOL/L (3.5-5.1)
[2024-09-28] MEDS: SODIUM BICARBONATE 150 MEQ in STERILE WATER LITER BAG 1,000 ML IV SCH (20:58)
[2024-09-28] MEDS: ALBUTEROL SULFATE 2.5MG/0.5ML INH NEB SOLN NEB ONE (21:16)
[2024-09-28] MEDS: HEPARIN SOD (PORCINE) 5000UNITS/ML 1ML VIAL/SYRINGE SQ SCH (21:25)
[2024-09-28] MEDS: PATIROMER SORBITEX CALCIUM 8.4 GM POWDER PACKET (VELTASSA) PO ONE (21:26)
[2024-09-29 00:05] LABS: CREATININE FOR GFR 1.72 MG/DL (0.70-1.30); GLOMERULAR FILTRATION RATE 41.7 (>42); POTASSIUM SERUM 6.4 MMOL/L (3.5-5.1)
[2024-09-29 00:34] VITALS: BP 138/77; TEMP 98.1; O2SAT 98
[2024-09-29 02:19] LABS: CALCIUM LEVEL 7.6 MG/DL (8.3-10.6); CREATININE FOR GFR 1.92 MG/DL (0.70-1.30); GLOMERULAR FILTRATION RATE 36.7 (>42); POTASSIUM SERUM 6.4 MMOL/L (3.5-5.1)
[2024-09-29 03:20] VITALS: BP 125/75; TEMP 98.2; O2SAT 96
[2024-09-29] MEDS: CALCIUM GLUCONATE 1,000 MG in DEXTROSE 5% (D5W) MINI-BAG PLU 100 ML IV ONE (05:11)
[2024-09-29 07:56] LABS: HEMATOCRIT 36.2 % (42.0-52.0); MEAN CORPUSCULAR HEMOGLOBIN 30.1 pg (27.0-33.0); MEAN CORPUSCULAR HGB CONC 35.4 g/dl (32.0-36.5); MEAN CORPUSCULAR VOLUME 85.2 fl (80.0-96.0); PLATELET COUNT, AUTOMATED 316 10^3/uL (150-450); RED BLOOD COUNT 4.25 10^6/uL (4.30-6.10); WHITE BLOOD COUNT 15.3 10^3/uL (4.0-10.0)
[2024-09-29 07:58] LABS: INR 1.45; PROTHROMBIN TIME 17.9 SECONDS (12.5-14.5)
[2024-09-29 08:00] VITALS: BP 124/67; TEMP 98.2; O2SAT 97
[2024-09-29 08:11] LABS: HEMOGLOBIN 12.8 g/dl (13.5-17.5)
[2024-09-29 08:29] LABS: VANCOMYCIN RANDOM 18.2 UG/ML
[2024-09-29 08:51] LABS: ALBUMIN 1.2 G/DL (3.2-5.2); BILIRUBIN,DIRECT 2.3 MG/DL (<0.4); CALCIUM LEVEL 7.6 MG/DL (8.3-10.6); CREATININE FOR GFR 1.91 MG/DL (0.70-1.30); MAGNESIUM LEVEL 2.1 MG/DL (1.8-2.4); PHOSPHORUS LEVEL 6.1 MG/DL (2.4-5.1); TOTAL PROTEIN 4.1 G/DL (5.7-8.2)
[2024-09-29 09:57] VITALS: BP 121/69
[2024-09-29 12:00] VITALS: BP 141/92; TEMP 99; O2SAT 92
[2024-09-29] MEDS ORDERED: PATIROMER SORBITEX CALCIUM 8.4 GM POWDER PACKET (VELTASSA) PO SCH (12:00)
== END 2024-09-29 13:35 | disposition short-term general hospital (02) | DRG 643 ==
LOC: M ED 15:49 → EDBD 15:49 → M ED INP 19:52 → M MSPAV 22:36 → OBSVTOIN 09-09 15:07 → M PCU 09-13 22:22 → M MSPAV 09-21 15:57 → M PCU 09-28 19:56
PROVIDERS: ADMIT Student in an Organized Health Care Education/Training Program; ATTEND Student in an Organized Health Care Education/Training Program
PROC: 0DH64UZ Insertion of Feeding Device into Stomach, Percutaneous Endoscopic Approach (ICD-10-PCS; principal; 2024-09-16 14:00)
PROC: 0DJ08ZZ Inspection of Upper Intestinal Tract, Via Natural or Artificial Opening Endoscopic (ICD-10-PCS; 2024-09-16 14:00)
PROC: 0DH64UZ Insertion of Feeding Device into Stomach, Percutaneous Endoscopic Approach (ICD-10-PCS; 2024-09-27)
DX: E06.3 Autoimmune thyroiditis (principal); G93.41 Metabolic encephalopathy; K76.7 Hepatorenal syndrome; K72.00 Acute and subacute hepatic failure without coma; C34.90 Malignant neoplasm of unspecified part of unspecified bronchus or lung; C78.7 Secondary malignant neoplasm of liver and intrahepatic bile duct; E46 Unspecified protein-calorie malnutrition; N17.9 Acute kidney failure, unspecified; E87.20 Acidosis, unspecified; B17.9 Acute viral hepatitis, unspecified; R53.1 Weakness; I10 Essential (primary) hypertension; E78.5 Hyperlipidemia, unspecified; E83.42 Hypomagnesemia; R13.10 Dysphagia, unspecified; E03.9 Hypothyroidism, unspecified; E83.52 Hypercalcemia; K66.8 Other specified disorders of peritoneum; B96.4 Proteus (mirabilis) (morganii) as the cause of diseases classified elsewhere; E11.65 Type 2 diabetes mellitus with hyperglycemia; D64.9 Anemia, unspecified; F31.9 Bipolar disorder, unspecified; F41.9 Anxiety disorder, unspecified; Z87.891 Personal history of nicotine dependence; R29.6 Repeated falls; Z92.3 Personal history of irradiation; Z79.899 Other long term (current) drug therapy; R11.0 Nausea; Z92.21 Personal history of antineoplastic chemotherapy; R41.0 Disorientation, unspecified